=== PATIENT | female | born 1980 | race Caucasian/White ===

== ENCOUNTER 2018-02-24 15:52 | Emergency (ER) | payer SELFPAY ==
--- NOTE | 2018-02-24 17:20 | ER ---
Nurse's Notes [facility] Emergency Department Name: Isabel Saucedo Age: 37 yrs Sex: Female : 1980 Arrival Date: 02/24/2018 Time: 15:53 Bed Waiting Private MD: Luis Peterson R Diagnosis: Assessment: 02/24 17:19 Reassessment: pt told registration staff that she was going to follow up with her PCP iw tomorrow. ED Course: 15:53 Patient arrived in ED. sb2 15:54 Luis Peterson MD is Private Physician. sb2 16:30 Patient's name was called from ER lobby. No response. aj1 16:45 Patient's name was called from ER lobby. No response. aj1 17:19 Patient's name was called from ER lobby. No response. aj1 Administered Medications: No medications were administered Outcome: 17:19 Patient left the ED. aj1 Signatures: Bernadette Patten RN RN aj1 Zeinab Benedict RN RN iw Billeau, Sheri sb2
== END 2018-02-24 17:19 | disposition left against medical advice (07) ==
LOC: ER 15:52
DX: Z53.21 Procedure and treatment not carried out due to patient leaving prior to being seen by health care provider (principal)

== ENCOUNTER 2018-08-28 08:43 | Emergency (ER) | payer SELFPAY ==
--- NOTE | 2018-08-28 09:55 | ER ---
Nurse's Notes [facility] Name: Isabel Saucedo Age: 38 yrs Sex: Female : 1980 Arrival Date: 08/28/2018 Time: 08:46 Bed 18 Private MD: Diagnosis: Other local infections of skin and subcutaneous tissue Presentation: 08/28 08:57 Presenting complaint: Patient states: "I think I have a staph infection." Reports sv "spots" that have been on both breasts for 2 months and 2 more spots on her right upper inner thigh that came up 2 days ago. Transition of care: patient was not received from another setting of care. Onset of symptoms is unknown. Care prior to arrival: None. 08:57 Method Of Arrival: Ambulatory sv 08:57 Acuity: SACHIN 3 sv 09:15 Risk Assessment: Do you want to hurt yourself or someone else? Patient reports no em desire to harm self or others. Initial Sepsis Screen: Does the patient meet any 2 criteria? No. Patient's initial sepsis screen is negative. Does the patient have a suspected source of infection? No. Patient's initial sepsis screen is negative. Historical: - Allergies: 09:03 PENICILLINS; sv - PMHx: 09:03 Aortic Stenosis; MRSA INFECTIONS; sv - PSHx: 09:03 Hysterectomy; I\\T\\D; sv - Immunization history:: Adult Immunizations up to date. - Social history:: Smoking status: Patient uses tobacco products, smokes one pack cigarettes per day. Patient/guardian denies using alcohol. - Ebola Screening: : No symptoms or risks identified at this time. Screenin:57 Abuse screen: Denies threats or abuse. Denies injuries from another. Nutritional sv screening: No deficits noted. Tuberculosis screening: No symptoms or risk factors identified. Fall Risk None identified. Assessment: 08:57 General: Appears in no apparent distress. comfortable, well developed, Behavior is sv calm, cooperative, appropriate for age. Pain:. Neuro: Level of Consciousness is awake, alert, obeys commands, Oriented to person, place, time, situation, Moves all extremities. Full function Gait is steady. Respiratory: Respiratory effort is even, unlabored, Respiratory pattern is regular, symmetrical. Derm: Skin is pink, warm \\T\\ dry. red raised areas about the 2 mm in diameter on danyel breasts and right upper inner thigh. Musculoskeletal: Range of motion: intact in all extremities. 10:00 Reassessment: Patient appears in no apparent distress at this time. Patient and/or em family updated on plan of care and expected duration. Pain level reassessed. Patient is alert, oriented x 3, equal unlabored respirations, skin warm/dry/pink. Vital Signs: 08:56 BP 135 / 80; Pulse 85; Resp 17; Temp 98.9; Pulse Ox 100% on R/A; jb1 09:03 Weight 61.23 kg; Height 5 ft. 1 in. (154.94 cm); Pain 4/10; sv 10:00 BP 133 / 67; Pulse 79; Resp 18; Pulse Ox 99% on R/A; em 09:03 Body Mass Index 25.51 (61.23 kg, 154.94 cm) sv ED Course: 08:46 Patient arrived in ED. rg4 08:54 Savage Calhoun PA is PHCP. cp 08:54 Savage Moreno MD is Attending Physician. cp 08:57 Patient has correct armband on for positive identification. Bed in low position. Door sv closed. Head of bed elevated. 08:58 Kurt Wong LVN is Primary Nurse. em 09:02 Triage completed. sv 09:03 Arm band placed on Patient placed in an exam room, on a stretcher. sv 09:30 KERRY Claudio chaperoned provider. em 10:17 Patient did not have IV access during this emergency room visit. em Administered Medications: No medications were administered Outcome: 09:54 Discharge ordered by MD. cp 10:17 Discharged to home ambulatory. em 10:17 Condition: good 10:17 Discharge instructions given to patient, Instructed on discharge instructions, follow up and referral plans. medication usage, Demonstrated understanding of instructions, follow-up care, medications, Prescriptions given X 1. 10:37 Patient left the ED. aa5 Signatures: Teodoro Weaver jb1 Lorna Condon RN RN Kurt Wong LVN LVN em Shanon Johnson RN RN aa5 Savage Calhoun PA PA cp Garcia, Rubi rg4
--- NOTE | 2018-08-28 09:55 | EDPHYS ---
Physician Documentation [facility] Name: Isabel Saucedo Age: 38 yrs Sex: Female : 1980 Arrival Date: 08/28/2018 Time: 08:46 Bed 18 Private MD: ED Physician Savage Moreno HPI: 08/28 09:35 This 38 yrs old Female presents to ER via Ambulatory with complaints of cp Abscess. 09:35 skin infection. cp 09:35 Description: draining, erythematous. cp 09:35 Onset: The symptoms/episode began/occurred 2 day(s) ago. cp 09:35 Associated signs and symptoms: Pertinent negatives: fever. Severity of symptoms: in the cp emergency department the symptoms are unchanged. Historical: - Allergies: 09:03 PENICILLINS; sv - PMHx: 09:03 Aortic Stenosis; MRSA INFECTIONS; sv - PSHx: 09:03 Hysterectomy; I\T\D; sv - Immunization history:: Adult Immunizations up to date. - Social history:: Smoking status: Patient uses tobacco products, smokes one pack cigarettes per day. Patient/guardian denies using alcohol. - Ebola Screening: : No symptoms or risks identified at this time. ROS: 09:40 Constitutional: Negative for body aches, chills, fever, poor PO intake. cp 09:40 Eyes: Negative for injury, pain, redness, and discharge. cp 09:40 ENT: Negative for drainage from ear(s), ear pain, sore throat, difficulty swallowing, difficulty handling secretions. 09:40 Cardiovascular: Positive for breast tenderness and swelling. 09:40 Respiratory: Negative for cough, shortness of breath, wheezing. 09:40 Abdomen/GI: Negative for abdominal pain, nausea, vomiting, and diarrhea. 09:40 Skin: Positive for of the left upper inner leg and right upper inner leg, skin infection. 09:40 All other systems are negative. Exam: 09:45 Constitutional: The patient appears in no acute distress, alert, awake, non-toxic, well cp developed, well nourished, anxious. 09:45 Head/Face: Normocephalic, atraumatic. cp 09:45 Eyes: Periorbital structures: appear normal, Conjunctiva: normal, no exudate, no cp injection, Lids and lashes: appear normal, bilaterally. 09:45 ENT: External ear(s): are unremarkable, Nose: is normal, Mouth: Lips: moist, Oral mucosa: moist, Posterior pharynx: Airway: no evidence of obstruction, patent. 09:45 Cardiovascular: Rate: normal. 09:45 Respiratory: the patient does not display signs of respiratory distress, Respirations: normal, no use of accessory muscles, no retractions, no splinting, no tachypnea. 09:45 Abdomen/GI: Exam negative for discomfort, distension, guarding, Inspection: abdomen appears normal. 09:45 Skin: noted several tender erythematous papules with mild erythema left upper inner leg and right upper inner leg. 09:45 Chest/axilla: Breasts: abscess, not appreciated, cellulitis, is not appreciated, cp swelling, is not appreciated, tenderness, that is mild in both breasts. Vital Signs: 08:56 BP 135 / 80; Pulse 85; Resp 17; Temp 98.9; Pulse Ox 100% on R/A; jb1 09:03 Weight 61.23 kg; Height 5 ft. 1 in. (154.94 cm); Pain 4/10; sv 10:00 BP 133 / 67; Pulse 79; Resp 18; Pulse Ox 99% on R/A; em 09:03 Body Mass Index 25.51 (61.23 kg, 154.94 cm) sv MDM: 08:54 Patient medically screened. cp 09:35 Differential diagnosis: abscess, allergic reaction, cellulitis. cp 09:53 Data reviewed: vital signs, nurses notes, lab test result(s), and as a result, I will cp discharge patient. 09:53 Counseling: I had a detailed discussion with the patient and/or guardian regarding: the cp historical points, exam findings, and any diagnostic results supporting the discharge/admit diagnosis, lab results, to return to the emergency department if symptoms worsen or persist or if there are any questions or concerns that arise at home. 08/28 09:34 Order name: Urine Dipstick--Ancillary (enter results) [facility] 08/28 09:34 Order name: Urine --Ancillary (enter results) aa 08/28 09:26 Order name: Urine Dipstick-Ancillary (obtain specimen); Complete Time: 09:33 cp 08/28 09:26 Order name: Urine Test (obtain specimen); Complete Time: 09:32 cp Administered Medications: No medications were administered Disposition: 08/28/18 09:54 Discharged to Home. Impression: Other local infections of skin and subcutaneous tissue. - Condition is Stable. - Discharge Instructions: Staphylococcal Infection. - Prescriptions for Doxycycline Hyclate 100 mg Oral Tablet - take 1 tablet by ORAL route every 12 hours; 20 tablet. - Medication Reconciliation Form, Thank You Letter, Antibiotic Education, Prescription Opioid Use form. - Follow up: Private Physician; When: 1 week; Reason: no improvement. - Problem is new. - Symptoms are unchanged. Addendum: 08/31/2018 05:26 Co-signature as Attending Physician, Savage Moreno MD I agree with the assessment and c mckeon plan of care. Signatures: Dispatcher [employer] Lorna Flower, RN RN sv Savage Moreno MD MD cha Calderon, Audri RN RN aa5 Savage Calhoun PA PA cp Corrections: (The following items were deleted from the chart) 08/28 10:37 09:54 08/28/2018 09:54 Discharged to Home. Impression: Other local infections of skin aa5 and subcutaneous tissue. Condition is Stable. Forms are Medication Reconciliation Form, Thank You Letter, Antibiotic Education, Prescription Opioid Use. Follow up: Private Physician; When: 1 week; Reason: no improvement. Problem is new. Symptoms are unchanged. cp
[2018-08-28 10:05] LABS: Urine Blood NEGATIVE (NEG); Urine Glucose NEGATIVE (NEG); Urine Protein NEGATIVE (NEG); Urine pH 6.5 (5.0-7.0)
[2018-08-28 10:50] VITALS: TEMP 98.9
[2018-08-28 10:52] VITALS: BP 133/67; O2SAT 99
== END 2018-08-28 10:37 | disposition home or self-care (01) ==
LOC: ER 08:43
DX: L08.89 Other specified local infections of the skin and subcutaneous tissue (principal); Z88.0 Allergy status to penicillin; F17.210 Nicotine dependence, cigarettes, uncomplicated
CPT/HCPCS: 81003; 81025; 99282

== ENCOUNTER 2018-08-29 07:14 | Emergency (ER) | payer SELFPAY ==
--- NOTE | 2018-08-29 07:54 | EDPHYS ---
Physician Documentation [facility] Name: Isabel Saucedo Age: 38 yrs Sex: Female : 1980 Arrival Date: 08/29/2018 Time: 07:21 Bed 12 Private MD: ED Physician Adal Edmondson HPI: 08/29 07:42 This 38 yrs old Female presents to ER via Ambulatory with complaints of rash cp on leg. 07:42 Onset: The symptoms/episode began/occurred this morning. Associated signs and symptoms: cp Pertinent positives: itching. Patient reports hives on legs since this morning. Took one dose of doxycycline for skin infection yesterday. 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 - Ebola Screening: : Patient negative for fever greater than or equal to 101.5 degrees Fahrenheit, and additional compatible Ebola Virus Disease symptoms Patient denies exposure to infectious person Patient denies travel to an Ebola-affected area in the 21 days before illness onset No symptoms or risks identified at this time. - Social history:: Smoking status: unknown. ROS: 07:51 Constitutional: Negative for body aches, chills, fever, poor PO intake. cp 07:51 Cardiovascular: Negative for chest pain, palpitations. 07:51 Respiratory: Negative for cough, shortness of breath, wheezing. 07:51 Abdomen/GI: Negative for abdominal pain, nausea, vomiting, and diarrhea. 07:51 Skin: Positive for rash, of the right leg and left leg. 07:51 Neuro: Negative for headache, weakness. 07:51 All other systems are negative. Exam: 07:52 Head/Face: Normocephalic, atraumatic. cp 07:52 Constitutional: The patient appears in no acute distress, alert, awake, non-toxic, well developed, well nourished. 07:52 Eyes: Periorbital structures: appear normal, Conjunctiva: normal, no exudate, no injection, Lids and lashes: appear normal, bilaterally. 07:52 ENT: External ear(s): are unremarkable, Nose: is normal, Mouth: Lips: moist, Oral mucosa: moist, Posterior pharynx: Airway: no evidence of obstruction, patent. 07:52 Chest/axilla: Inspection: normal. 07:52 Respiratory: the patient does not display signs of respiratory distress, Respirations: normal, no use of accessory muscles, no retractions, no splinting, no tachypnea. 07:52 Skin: rash can be described as excoriated, urticarial, on the right leg and left leg. Vital Signs: 07:55 BP 125 / 73; Pulse 84; Resp 16; Temp 98.2; Pulse Ox 100% on R/A; Pain 0/10; iw MDM: 07:35 Patient medically screened. cp 07:50 Differential diagnosis: cellulitis, hives, urticaria. cp 07:51 Data reviewed: vital signs, nurses notes, and as a result, I will discharge patient. cp 07:51 Counseling: I had a detailed discussion with the patient and/or guardian regarding: the cp historical points, exam findings, and any diagnostic results supporting the discharge/admit diagnosis, to return to the emergency department if symptoms worsen or persist or if there are any questions or concerns that arise at home. Administered Medications: No medications were administered Disposition: 08:00 Chart complete. cp 12:17 Co-signature as Attending Physician, Adal Edmondson MD. Disposition: 08/29/18 07:53 Discharged to Home. Impression: Urticaria. - Condition is Stable. - Discharge Instructions: Hives. - Prescriptions for Pepcid 20 mg Oral Tablet - take 1 tablet by ORAL route every 12 hours for 5 days; 10 tablet. Prednisone 20 mg Oral Tablet - take 2 tablet by ORAL route once daily for 5 days; 10 tablet. Clindamycin HCl 150 mg Oral Capsule - take 1 capsule by ORAL route every 6 hours for 10 days; 40 capsule. - Medication Reconciliation Form, Thank You Letter, Antibiotic Education, Prescription Opioid Use form. - Follow up: Private Physician; When: 2 - 3 days; Reason: Recheck today's complaints. - Problem is new. - Symptoms are unchanged. - Notes: stop doxycycline Signatures: Zeinab Benedict RN RN iw Page, Corey, PA PA cp Starr, Gregory, MD MD Corrections: (The following items were deleted from the chart) 07:59 07:53 08/29/2018 07:53 Discharged to Home. Impression: Urticaria. Condition is Stable. iw Forms are Medication Reconciliation Form, Thank You Letter, Antibiotic Education, Prescription Opioid Use. Follow up: Private Physician; When: 2 - 3 days; Reason: Recheck today's complaints. Problem is new. Symptoms are unchanged. cp 08/30 06:18 08/29 07:42 This 38 yrs old Female presents to ER via Ambulatory with cp complaints of Infection On leg. cp
--- NOTE | 2018-08-29 07:54 | ER ---
Nurse's Notes [facility] Name: Isabel Saucedo Age: 38 yrs Sex: Female : 1980 Arrival Date: 08/29/2018 Time: 07:21 Bed 12 Private MD: Diagnosis: Urticaria Presentation: 08/29 07:35 Presenting complaint: Patient states: was seen here yesterday, started on abx for sores iw on her inner thighs, started having itching and hives last night. Transition of care: patient was received from another setting of care (rehabilitation facility). Onset of symptoms was August 29, 2018. Risk Assessment: Do you want to hurt yourself or someone else? Patient reports no desire to harm self or others. Initial Sepsis Screen: Does the patient meet any 2 criteria? No. Patient's initial sepsis screen is negative. Does the patient have a suspected source of infection? No. Patient's initial sepsis screen is negative. Care prior to arrival: None. 07:35 Method Of Arrival: Ambulatory iw 07:35 Acuity: SACHIN 5 iw Triage Assessment: 07:35 General: Appears in no apparent distress. Behavior is calm, cooperative. 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 - Ebola Screening: : Patient negative for fever greater than or equal to 101.5 degrees Fahrenheit, and additional compatible Ebola Virus Disease symptoms Patient denies exposure to infectious person Patient denies travel to an Ebola-affected area in the 21 days before illness onset No symptoms or risks identified at this time. - Social history:: Smoking status: unknown. Screenin:55 Abuse screen: Denies threats or abuse. Denies injuries from another. Nutritional iw screening: No deficits noted. Tuberculosis screening: No symptoms or risk factors identified. Fall Risk None identified. Assessment: 07:45 General: Appears in no apparent distress. comfortable, Behavior is calm, cooperative. iw Pain: Complains of pain in left leg and right leg. Neuro: Level of Consciousness is awake, alert, obeys commands, Oriented to person, place, time, situation, Moves all extremities. Full function. Cardiovascular: Patient's skin is warm and dry. Respiratory: Airway is patent Respiratory effort is even, unlabored, Respiratory pattern is regular. GI: No signs and/or symptoms were reported involving the gastrointestinal system. Derm: Parent/caregiver reports the patient having itching, hives to danyel inner thighs, has resolved at this point, states she was started on doxycycline yesterday, has taken clindamycin in the past and typically works well for her. Musculoskeletal: Range of motion: intact in all extremities. Vital Signs: 07:55 BP 125 / 73; Pulse 84; Resp 16; Temp 98.2; Pulse Ox 100% on R/A; Pain 0/10; iw ED Course: 07:21 Patient arrived in ED. mr 07:34 Zeinab Benedict, RN is Primary Nurse. iw 07:35 Savage Calhoun PA is PHCP. cp 07:35 Adal Edmondson MD is Attending Physician. cp 07:35 Patient has correct armband on for positive identification. iw 07:36 Triage completed. iw 07:37 Arm band placed on. iw 07:58 No provider procedures requiring assistance completed. Patient did not have IV access iw during this emergency room visit. Administered Medications: No medications were administered Outcome: 07:53 Discharge ordered by . cp 07:58 Discharged to home ambulatory. iw 07:58 Condition: good 07:58 Discharge instructions given to patient, Instructed on discharge instructions, follow up and referral plans. medication usage, Demonstrated understanding of instructions, follow-up care, medications, Prescriptions given X 3. 07:59 Patient left the ED. iw Signatures: Mariajose Schwab mr Zeinab Benedict, RN RN iw Savage Calhoun PA PA cp
[2018-08-29 08:12] VITALS: BP 125/73; TEMP 98.2; O2SAT 100
== END 2018-08-29 07:59 | disposition home or self-care (01) ==
LOC: ER 07:14
DX: L50.9 Urticaria, unspecified (principal); Z88.0 Allergy status to penicillin; Z79.82 Long term (current) use of aspirin
CPT/HCPCS: 99282

== ENCOUNTER 2018-09-13 14:12 | Emergency (ER) | payer SELFPAY ==
--- NOTE | 2018-09-13 15:20 | EDPHYS ---
Physician Documentation [facility] Name: Isabel Saucedo Age: 38 yrs Sex: Female : 1980 Arrival Date: 09/13/2018 Time: 14:14 Bed 17 Private MD: ED Physician Adal Edmondson HPI: 09/13 15:14 This 38 yrs old Female presents to ER via Ambulatory with complaints of Skin gs Problem. 15:14 The patient's rash thought to be caused by an unknown cause. The rash is located on the gs lateral aspect of right calf. The rash can be described as crusted. Onset: The symptoms/episode began/occurred 5 day(s) ago. Associated signs and symptoms: Pertinent positives: itching, Pertinent negatives: fever. Severity of symptoms: At their worst the symptoms were moderate in the emergency department the symptoms are unchanged. The patient has experienced similar episodes in the past, a few times. finished course of clinda for a staph infection. Historical: - Allergies: 14:16 penicillin resistant; la1 - PMHx: 14:16 Aortic Stenosis; MRSA INFECTIONS; la1 - Immunization history:: Adult Immunizations up to date. - Social history:: Smoking status: Patient uses tobacco products, smokes one-half pack cigarettes per day. - Ebola Screening: : No symptoms or risks identified at this time. ROS: 15:14 All other systems are negative. gs Exam: 15:14 Head/Face: Normocephalic, atraumatic. Eyes: Pupils equal round and reactive to light, gs extra-ocular motions intact. Lids and lashes normal. Conjunctiva and sclera are non-icteric and not injected. Cornea within normal limits. Periorbital areas with no swelling, redness, or edema. ENT: Nares patent. No nasal discharge, no septal abnormalities noted. Tympanic membranes are normal and external auditory canals are clear. Oropharynx with no redness, swelling, or masses, exudates, or evidence of obstruction, uvula midline. Mucous membranes moist. Neck: Trachea midline, no thyromegaly or masses palpated, and no cervical lymphadenopathy. Supple, full range of motion without nuchal rigidity, or vertebral point tenderness. No Meningismus. Chest/axilla: Normal chest wall appearance and motion. Nontender with no deformity. No lesions are appreciated. Cardiovascular: Regular rate and rhythm with a normal S1 and S2. No gallops, murmurs, or rubs. Normal PMI, no JVD. No pulse deficits. Respiratory: Lungs have equal breath sounds bilaterally, clear to auscultation and percussion. No rales, rhonchi or wheezes noted. No increased work of breathing, no retractions or nasal flaring. Abdomen/GI: Soft, non-tender, with normal bowel sounds. No distension or tympany. No guarding or rebound. No evidence of tenderness throughout. Back: No spinal tenderness. No costovertebral tenderness. Full range of motion. MS/ Extremity: Pulses equal, no cyanosis. Neurovascular intact. Full, normal range of motion. Neuro: Awake and alert, GCS 15, oriented to person, place, time, and situation. Cranial nerves II-XII grossly intact. Motor strength 5/5 in all extremities. Sensory grossly intact. Cerebellar exam normal. Normal gait. 15:14 Constitutional: The patient appears alert, awake. 15:14 Skin: small scab r lateral leg with mild surrounding erythema. Vital Signs: 14:18 Pulse 84; Resp 18; Temp 98.4; Pulse Ox 100% on R/A; Weight 61.23 kg; Height 5 ft. 2 in. la1 (157.48 cm); 14:19 BP 133 / 78; la1 14:18 Body Mass Index 24.69 (61.23 kg, 157.48 cm) la1 MDM: 15:00 Patient medically screened. gs 15:14 Data reviewed: vital signs, nurses notes. Response to treatment: There is no gs appreciated change of the patient's symptoms at this time. ED course: will try to decolonize mrsa. Administered Medications: No medications were administered Disposition: 09/13/18 15:20 Discharged to Home. Impression: Methicillin resistant Staphylococcus aureus infection, unspecified site. - Condition is Stable. - Discharge Instructions: Community-Associated MRSA. - Prescriptions for Bactroban 2 % Topical Ointment - apply 1 application by INTRANASAL route every 12 hours for 5 days; 15 gram. - Medication Reconciliation Form, Thank You Letter, Antibiotic Education, Prescription Opioid Use form. - Follow up: Private Physician; When: 2 - 3 days; Reason: Re-evaluation by your physician. Signatures: Kurt Wong, TESHA MUSAN Jens Boyd RN Adal Kurtz MD MD gs Corrections: (The following items were deleted from the chart) 15:46 15:20 09/13/2018 15:20 Discharged to Home. Impression: Methicillin resistant em Staphylococcus aureus infection, unspecified site. Condition is Stable. Forms are Medication Reconciliation Form, Thank You Letter, Antibiotic Education, Prescription Opioid Use. Follow up: Private Physician; When: 2 - 3 days; Reason: Re-evaluation by your physician. gs
--- NOTE | 2018-09-13 15:20 | ER ---
Nurse's Notes [facility] Name: Isabel Saucedo Age: 38 yrs Sex: Female : 1980 Arrival Date: 09/13/2018 Time: 14:14 Bed 17 Private MD: Diagnosis: Methicillin resistant Staphylococcus aureus infection, unspecified site Presentation: 09/13 14:16 Presenting complaint: Patient states: I have some sports on my arms and legs and I am la1 worried because I always get staph infections. I am also feeling like crap and I don't know what it is from. Transition of care: patient was not received from another setting of care. Onset of symptoms was September 13, 2018. Risk Assessment: Do you want to hurt yourself or someone else? Patient reports no desire to harm self or others. Initial Sepsis Screen: Does the patient meet any 2 criteria? No. Patient's initial sepsis screen is negative. Does the patient have a suspected source of infection? No. Patient's initial sepsis screen is negative. Care prior to arrival: None. 14:16 Method Of Arrival: Ambulatory la1 14:16 Acuity: SACHIN 3 la1 Historical: - Allergies: 14:16 penicillin resistant; la1 - PMHx: 14:16 Aortic Stenosis; MRSA INFECTIONS; la1 - Immunization history:: Adult Immunizations up to date. - Social history:: Smoking status: Patient uses tobacco products, smokes one-half pack cigarettes per day. - Ebola Screening: : No symptoms or risks identified at this time. Screenin:00 Abuse screen: Denies threats or abuse. Nutritional screening: No deficits noted. em Tuberculosis screening: No symptoms or risk factors identified. Fall Risk None identified. Assessment: 15:00 General: Appears in no apparent distress. comfortable, Behavior is calm, cooperative, em Denies fever. Pain: Denies pain. Neuro: Level of Consciousness is awake, alert, obeys commands, Oriented to person, place, time, situation. Cardiovascular: Capillary refill < 3 seconds Patient's skin is warm and dry. Respiratory: Airway is patent Respiratory effort is even, unlabored, Respiratory pattern is regular, symmetrical. GI: Abdomen is flat. : No signs and/or symptoms were reported regarding the genitourinary system. Derm: Skin is intact, is healthy with good turgor, Skin is pink, warm \T\ dry. redness noted to danyel. hands, described as itchy Reports reports having MRSA every time she is at [facility] [facility]. Musculoskeletal: Capillary refill < 3 seconds, Range of motion: intact in all extremities. 15:15 Reassessment: Patient appears in no apparent distress at this time. I agree with above iw assessment by Kurt Wong LVN. Vital Signs: 14:18 Pulse 84; Resp 18; Temp 98.4; Pulse Ox 100% on R/A; Weight 61.23 kg; Height 5 ft. 2 in. la1 (157.48 cm); 14:19 BP 133 / 78; la1 14:18 Body Mass Index 24.69 (61.23 kg, 157.48 cm) la1 ED Course: 14:14 Patient arrived in ED. as 14:17 Triage completed. la1 14:17 Arm band placed on left wrist. la1 14:29 Adal Edmondson MD is Attending Physician. 14:36 Kurt Wong LVN is Primary Nurse. em 15:00 Patient has correct armband on for positive identification. Bed in low position. Call em light in reach. 15:46 No provider procedures requiring assistance completed. Patient did not have IV access em during this emergency room visit. Administered Medications: No medications were administered Outcome: 15:20 Discharge ordered by . gs 15:46 Discharged to home ambulatory. em 15:46 Condition: good 15:46 Discharge instructions given to patient, Instructed on discharge instructions, follow up and referral plans. medication usage, Demonstrated understanding of instructions, follow-up care, medications, Prescriptions given X 1. 15:46 Patient left the ED. em Signatures: Kurt Wong LVN LVN em Lawanda Seo as Zeinab Benedict, RN KERRY Jens Doty RN RN [facility] Adal Edmondson MD MD
[2018-09-13 15:51] VITALS: BP 133/78; TEMP 98.4; O2SAT 100
== END 2018-09-13 15:46 | disposition home or self-care (01) ==
LOC: ER 14:12
DX: A49.02 Methicillin resistant Staphylococcus aureus infection, unspecified site (principal); F17.210 Nicotine dependence, cigarettes, uncomplicated; Z88.0 Allergy status to penicillin
CPT/HCPCS: 99282

== ENCOUNTER 2018-11-11 16:14 | Emergency (ER) | payer SELFPAY ==
--- OUTSIDE RECORDS SUMMARY | 2018-11-11 16:24 | XMS REPORT ---
:1980 [facility] [address] [place] [address] Care Team Providers Name Role Phone Unavailable Unavailable Unavailable Problems This patient has no known problems. Allergies, Adverse Reactions, Alerts This patient has no known allergies or adverse reactions. Medications This patient has no known medications.
[2018-11-11] MEDS ORDERED: predniSONE 20 MG TAB ONE (17:08)
[2018-11-11] MEDS ORDERED: FAMOTIDINE 20 MG TAB ONE (17:08)
--- NOTE | 2018-11-11 17:16 | ER ---
Nurse's Notes [facility] Name: Isabel Saucedo Age: 38 yrs Sex: Female : 1980 Arrival Date: 11/11/2018 Time: 16:16 Bed 13 Private MD: Diagnosis: Acute pharyngitis Presentation: 11/11 16:30 Presenting complaint: Patient states: sore throat and cough x 2 days ago. Pt states "my aa5 body hurts, especially my chest and my neck". 16:30 Transition of care: patient was not received from another setting of care. Onset of aa5 symptoms was October 2018. Risk Assessment: Do you want to hurt yourself or someone else? Patient reports no desire to harm self or others. Initial Sepsis Screen: Does the patient meet any 2 criteria? No. Patient's initial sepsis screen is negative. Does the patient have a suspected source of infection? No. Patient's initial sepsis screen is negative. Care prior to arrival: None. 16:30 Method Of Arrival: Ambulatory aa5 16:30 Acuity: SACHIN 4 aa5 Triage Assessment: 16:30 General: Appears in no apparent distress. comfortable, Behavior is calm, cooperative, bp appropriate for age. Pain: Complains of pain in GENERALIZED. EENT: Reports pain when swallowing. Neuro: Level of Consciousness is awake, alert, obeys commands, Oriented to person, place, time, situation, Appropriate for age. Cardiovascular: No deficits noted. Respiratory: Airway is patent Respiratory effort is even, unlabored, Respiratory pattern is regular, symmetrical. GI: No signs and/or symptoms were reported involving the gastrointestinal system. : No signs and/or symptoms were reported regarding the genitourinary system. Derm: No deficits noted. Musculoskeletal: Circulation, motion, and sensation intact. Range of motion: intact in all extremities. 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 - Social history:: Smoking status: Patient uses tobacco products, smokes one-half pack cigarettes per day. - Ebola Screening: : No symptoms or risks identified at this time. Screenin:07 Abuse screen: Denies threats or abuse. Denies injuries from another. Nutritional bp screening: No deficits noted. Tuberculosis screening: No symptoms or risk factors identified. Fall Risk None identified. Assessment: 16:30 General: SEE TRIAGE NOTE. Respiratory: Airway is patent Breath sounds are clear bp bilaterally. 16:30 Respiratory: Airway is patent Respiratory effort is even, unlabored, Respiratory bp pattern is regular, symmetrical, Breath sounds are clear bilaterally. 16:30 EENT: Throat is reddened. bp 17:57 Reassessment: FINAL LAB RESULTS RECEIVED FROM LAB. PT D/C HOME AMBULATORY WITH FAMILY, bp DX WITH ACUTE PHARYNGITIS. Vital Signs: 16:30 BP 110 / 65; Pulse 83; Resp 18 S; Temp 98.2(O); Pulse Ox 99% on R/A; Weight 61.23 kg aa5 (R); Height 5 ft. 2 in. (157.48 cm) (R); Pain 8/10; 17:57 BP 117 / 69; Pulse 77; Resp 14; Temp 98.2; Pulse Ox 99% ; bp 16:30 Body Mass Index 24.69 (61.23 kg, 157.48 cm) aa5 ED Course: 16:16 Patient arrived in ED. mr 16:25 Elba Antoine [facility]C [facility] snw 16:25 Carmenza Dawkins MD is Attending Physician. snw 16:28 Arm band placed on Patient placed in an exam room, on a stretcher. aa5 16:38 Triage completed. aa5 16:46 Oh Giraldo, RN is Primary Nurse. bp 17:07 Patient has correct armband on for positive identification. Bed in low position. Call bp light in reach. Side rails up X2. Adult w/ patient. 17:57 No provider procedures requiring assistance completed. Patient did not have IV access bp during this emergency room visit. Administered Medications: 16:50 Drug: predniSONE 40 mg Route: PO; bp 17:27 Follow up: Response: No adverse reaction bp 16:50 Drug: Pepcid 20 mg Route: PO; bp 17:27 Follow up: Response: No adverse reaction bp Outcome: 17:15 Discharge ordered by . snw 17:58 Discharged to home ambulatory, with family. bp 17:58 Condition: stable 17:58 Discharge instructions given to patient, Instructed on discharge instructions, follow up and referral plans. medication usage, Demonstrated understanding of instructions, follow-up care, medications, Prescriptions given X 3. 17:59 Patient left the ED. bp Signatures: Elba Antoine, BALANCE BRIDGE ASSEMBLER-C BALANCE BRIDGE ASSEMBLER-Csnw Mariajose Schwab mr Johnson, Shanon, RN RN aa5 Oh Giraldo RN RN bp
--- NOTE | 2018-11-11 17:17 | EDPHYS ---
Physician Documentation [facility] Name: Isabel Saucedo Age: 38 yrs Sex: Female : 1980 Arrival Date: 11/11/2018 Time: 16:16 Bed 13 Private MD: ED Physician Carmenza Dawkins HPI: 11/11 16:45 This 38 yrs old Female presents to ER via Ambulatory with complaints of Sore snw Throat. 16:45 The patient presents with sore throat. The patient describes throat pain as raw, snw scratchy. Onset: The symptoms/episode began/occurred suddenly, 4 day(s) ago, and became persistent. Modifying factors: The symptoms are alleviated by nothing, the symptoms are aggravated by swallowing, Patient's oral intake status: good. Associated signs and symptoms: Pertinent positives: cough. It is unknown whether or not the patient has had similar symptoms in the past. It is unknown whether or not the patient has recently seen a physician. 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 - Social history:: Smoking status: Patient uses tobacco products, smokes one-half pack cigarettes per day. - Ebola Screening: : No symptoms or risks identified at this time. ROS: 16:43 Constitutional: Negative for fever, chills, and weight loss, Eyes: Negative for injury, snw pain, redness, and discharge, ENT: Negative for injury and discharge, + pain x 4 days Neck: Negative for injury, pain, and swelling, Cardiovascular: Negative for chest pain, palpitations, and edema, awoke with right chest wall tenderness s/p cough Respiratory: Negative for shortness of breath, cough, wheezing, and pleuritic chest pain, Abdomen/GI: Negative for abdominal pain, nausea, vomiting, diarrhea, and constipation, Back: Negative for injury and pain, : Negative for injury, bleeding, discharge, and swelling, MS/Extremity: Negative for injury and deformity, Skin: Negative for injury, rash, and discoloration, Neuro: Negative for headache, weakness, numbness, tingling, and seizure. Exam: 16:41 Constitutional: This is a well developed, well nourished patient who is awake, alert, snw and in no acute distress. Head/Face: Normocephalic, atraumatic. Eyes: Pupils equal round and reactive to light, extra-ocular motions intact. Lids and lashes normal. Conjunctiva and sclera are non-icteric and not injected. Cornea within normal limits. Periorbital areas with no swelling, redness, or edema. Neck: Trachea midline, no thyromegaly or masses palpated, and no cervical lymphadenopathy. Supple, full range of motion without nuchal rigidity, or vertebral point tenderness. No Meningismus. Chest/axilla: Normal chest wall appearance and motion. Nontender with no deformity. No lesions are appreciated. Cardiovascular: Regular rate and rhythm with a normal S1 and S2. No gallops, murmurs, or rubs. Normal PMI, no JVD. No pulse deficits. Respiratory: Lungs have equal breath sounds bilaterally, clear to auscultation and percussion. No rales, rhonchi or wheezes noted. No increased work of breathing, no retractions or nasal flaring. Abdomen/GI: Soft, non-tender, with normal bowel sounds. No distension or tympany. No guarding or rebound. No evidence of tenderness throughout. Back: No spinal tenderness. No costovertebral tenderness. Full range of motion. Skin: Warm, dry with normal turgor. Normal color with no rashes, no lesions, and no evidence of cellulitis. MS/ Extremity: Pulses equal, no cyanosis. Neurovascular intact. Full, normal range of motion. Neuro: Awake and alert, GCS 15, oriented to person, place, time, and situation. Cranial nerves II-XII grossly intact. Motor strength 5/5 in all extremities. Sensory grossly intact. Cerebellar exam normal. Normal gait. Psych: Awake, alert, with orientation to person, place and time. Behavior, mood, and affect are within normal limits. 16:41 ENT: External ear(s): are unremarkable, Ear canal(s): are normal, TM's: erythema, that is mild, on the left, Examination of the other ear shows no obvious abnormality, Nose: is normal, Mouth: is normal, Posterior pharynx: erythema, that is mild, Voice: is normal. Vital Signs: 16:30 BP 110 / 65; Pulse 83; Resp 18 S; Temp 98.2(O); Pulse Ox 99% on R/A; Weight 61.23 kg aa5 (R); Height 5 ft. 2 in. (157.48 cm) (R); Pain 8/10; 17:57 BP 117 / 69; Pulse 77; Resp 14; Temp 98.2; Pulse Ox 99% ; bp 16:30 Body Mass Index 24.69 (61.23 kg, 157.48 cm) aa5 MDM: 16:31 Patient medically screened. snw 17:16 Data reviewed: vital signs, nurses notes. Data interpreted: Pulse oximetry: on room air snw is 99 %. Interpretation: normal. Counseling: I had a detailed discussion with the patient and/or guardian regarding: the historical points, exam findings, and any diagnostic results supporting the discharge/admit diagnosis, lab results, the need for outpatient follow up, to return to the emergency department if symptoms worsen or persist or if there are any questions or concerns that arise at home. Special discussion: Based on the history and exam findings, there is no indication for further emergent testing or inpatient evaluation. I discussed with the patient/guardian the need to see the primary care provider for further evaluation of the symptoms. 11/11 16:26 Order name: Strep; Complete Time: 17:55 snw 11/11 17:53 Order name: Throat Culture EDMS Administered Medications: 16:50 Drug: predniSONE 40 mg Route: PO; bp 17:27 Follow up: Response: No adverse reaction bp 16:50 Drug: Pepcid 20 mg Route: PO; bp 17:27 Follow up: Response: No adverse reaction bp Disposition: 18:39 Co-signature as Attending Physician, Carmenza Dawkins MD. ma2 Disposition: 11/11/18 17:15 Discharged to Home. Impression: Acute pharyngitis. - Condition is Stable. - Discharge Instructions: Pharyngitis, Rehydration, Adult. - Prescriptions for Prednisone 20 mg Oral Tablet - take 1 tablet by ORAL route once daily for 5 days; 5 tablet. Tessalon Perles 100 mg Oral Capsule - take 1 capsule by ORAL route every 8 hours As needed; 15 capsule. Pepcid 20 mg Oral Tablet - take 1 tablet by ORAL route once daily; 20 tablet. - Medication Reconciliation Form, Thank You Letter, Antibiotic Education, Prescription Opioid Use form. - Follow up: Emergency Department; When: As needed; Reason: Worsening of condition. Follow up: Private Physician; When: 2 - 3 days; Reason: Recheck today's complaints, Continuance of care, Re-evaluation by your physician. Signatures: Dispatcher [employer] EDNE ArashElba whiting, JENNIFER-C PLANNING ADVISOR-Csnw Shanon Johnson, RN RN aa5 Oh Giraldo RN RN bp Carmenza Dawkins MD MD ma2 Corrections: (The following items were deleted from the chart) 17:59 17:15 11/11/2018 17:15 Discharged to Home. Impression: Acute pharyngitis. Condition is bp Stable. Discharge Instructions: Pharyngitis, Rehydration, Adult. Prescriptions for Prednisone 20 mg Oral Tablet - take 1 tablet by ORAL route once daily for 5 days; 5 tablet, Tessalon Perles 100 mg Oral Capsule - take 1 capsule by ORAL route every 8 hours As needed; 15 capsule. and Forms are Medication Reconciliation Form, Thank You Letter, Antibiotic Education, Prescription Opioid Use. Follow up: Emergency Department; When: As needed; Reason: Worsening of condition. Follow up: Private Physician; When: 2 - 3 days; Reason: Recheck today's complaints, Continuance of care, Re-evaluation by your physician. snw
[2018-11-11 18:24] VITALS: TEMP 98.2; O2SAT 99
[2018-11-11 18:26] VITALS: BP 117/69
== END 2018-11-11 17:59 | disposition home or self-care (01) ==
LOC: ER 16:14
DX: J02.9 Acute pharyngitis, unspecified (principal); F17.210 Nicotine dependence, cigarettes, uncomplicated; Z88.0 Allergy status to penicillin
CPT/HCPCS: 87070; 87081; 99283; J7512

== ENCOUNTER 2019-04-07 08:40 | Emergency (ER) | payer SELFPAY ==
[2019-04-07] MEDS ORDERED: KETOROLAC 30 MG/ML INJ ONE (09:34)
--- NOTE | 2019-04-07 10:25 | EDPHYS ---
Physician Documentation [facility] Name: Isabel Saucedo Age: 39 yrs Sex: Female : 1980 Arrival Date: 04/07/2019 Time: 08:42 Bed 18 Private MD: ED Physician Hipolito Cobb HPI: 04/07 10:14 This 39 yrs old Female presents to ER via Ambulatory with complaints of Ear kdr Pain, Headache. 10:14 The patient presents with pain, tenderness. The complaints affect the right ear. Onset: kdr The symptoms/episode began/occurred this morning. Modifying factors: The symptoms are alleviated by nothing, the symptoms are aggravated by touching. Associated signs and symptoms: Pertinent positives: None. Severity of symptoms: At their worst the symptoms were mild in the emergency department the symptoms are unchanged. The patient has not experienced similar symptoms in the past. The patient has not recently seen a physician. 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 - Social history:: Smoking status: Patient uses tobacco products, smokes one pack cigarettes per day. - Ebola Screening: : Patient negative for fever greater than or equal to 101.5 degrees Fahrenheit, and additional compatible Ebola Virus Disease symptoms Patient denies exposure to infectious person Patient denies travel to an Ebola-affected area in the 21 days before illness onset No symptoms or risks identified at this time. ROS: 10:14 Constitutional: Negative for fever, chills, and weight loss, Eyes: Negative for injury, kdr pain, redness, and discharge, Neck: Negative for injury, pain, and swelling, Cardiovascular: Negative for chest pain, palpitations, and edema. 10:14 ENT: Positive for ear pain. Exam: 10:14 Constitutional: This is a well developed, well nourished patient who is awake, alert, kdr and in no acute distress. Head/Face: Normocephalic, atraumatic. Eyes: Pupils equal round and reactive to light, extra-ocular motions intact. Lids and lashes normal. Conjunctiva and sclera are non-icteric and not injected. Cornea within normal limits. Periorbital areas with no swelling, redness, or edema. Neck: Trachea midline, no thyromegaly or masses palpated, and no cervical lymphadenopathy. Supple, full range of motion without nuchal rigidity, or vertebral point tenderness. No Meningismus. Chest/axilla: Normal chest wall appearance and motion. Nontender with no deformity. No lesions are appreciated. 10:14 ENT: External ear(s): erythema, that is minimal, of the pinna of right ear. Vital Signs: 09:06 BP 124 / 90; Pulse 88; Resp 16; Temp 98.2(O); Pulse Ox 99% on R/A; Weight 61.23 kg; iw Height 5 ft. 2 in. (157.48 cm); Pain 9/10; 10:01 BP 116 / 78; Pulse 54; Resp 16; Pulse Ox 100% ; bp 09:06 Body Mass Index 24.69 (61.23 kg, 157.48 cm) iw MDM: 10:09 Patient medically screened. kdr 10:14 Data reviewed: vital signs, nurses notes. Counseling: I had a detailed discussion with kdr the patient and/or guardian regarding: the historical points, exam findings, and any diagnostic results supporting the discharge/admit diagnosis, the need for outpatient follow up. Administered Medications: 09:30 Drug: TORadol - Ketorolac 15 mg Route: IM; Site: right deltoid; bp 10:33 Follow up: Response: Pain is decreased bp Disposition: 04/07/19 10:09 Discharged to Home. Impression: Right Aricular Pain. - Condition is Stable. - Discharge Instructions: Earache, Adult, General Headache Without Cause, [id number]. - Prescriptions for Tramadol 50 mg Oral Tablet - take 1 tablet by ORAL route every 8 hours as needed; 12 tablet. - Medication Reconciliation Form, Thank You Letter form. - Follow up: Private Physician; When: 2 - 3 days; Reason: If symptoms return, Further diagnostic work-up, Recheck today's complaints, Continuance of care, Re-evaluation by your physician. - Problem is new. - Symptoms have improved. Signatures: Hipolito Cobb MD MD kdr Zeinab Benedict RN RN iw Enzo, Oh, RN RN bp Corrections: (The following items were deleted from the chart) 09:17 09:05 Allergies: Aspirin; iw iw 10:33 10:09 04/07/2019 10:09 Discharged to Home. Impression: Right Aricular Pain. Condition bp is Stable. Forms are Medication Reconciliation Form, Thank You Letter, Antibiotic Education, Prescription Opioid Use. Follow up: Private Physician; When: 2 - 3 days; Reason: If symptoms return, Further diagnostic work-up, Recheck today's complaints, Continuance of care, Re-evaluation by your physician. Problem is new. Symptoms have improved. kdr
--- NOTE | 2019-04-07 10:25 | ER ---
Nurse's Notes [facility] Name: Isabel Saucedo Age: 39 yrs Sex: Female : 1980 Arrival Date: 04/07/2019 Time: 08:42 Bed 18 Private MD: Diagnosis: Right Aricular Pain Presentation: 04/07 09:03 Presenting complaint: Patient states: right outer ear pain, right sided headache, iw described as sharp, "feels like my head's in a vice", started this morning and "I just don't feel good". Transition of care: patient was not received from another setting of care. Onset of symptoms was April 07, 2019. Risk Assessment: Do you want to hurt yourself or someone else? Patient reports no desire to harm self or others. Initial Sepsis Screen: Does the patient meet any 2 criteria? No. Patient's initial sepsis screen is negative. Does the patient have a suspected source of infection? No. Patient's initial sepsis screen is negative. Care prior to arrival: None. 09:03 Method Of Arrival: Ambulatory iw 09:03 Acuity: SACHIN 3 iw Triage Assessment: 09:05 General: Appears in no apparent distress. comfortable, Behavior is cooperative, bp appropriate for age, anxious. Pain: Complains of pain in right ear. EENT: No deficits noted. Neuro: No deficits noted. Cardiovascular: No deficits noted. Respiratory: No deficits noted. GI: No signs and/or symptoms were reported involving the gastrointestinal system. : No signs and/or symptoms were reported regarding the genitourinary system. Derm: No deficits noted. Musculoskeletal: No deficits noted. BEDSPREAD SEAMER: 09:06 LMP N/A - Hysterectomy iw Historical: - Allergies: :17 No Known Allergies; iw - Home Meds: 09:05 None [Active]; iw - PMHx: 09:05 Aortic Stenosis; MRSA INFECTIONS; iw - PSHx: 09:05 Hysterectomy; bladder sling; iw - Immunization history:: Adult Immunizations not up to date. - Social history:: Smoking status: Patient uses tobacco products, smokes one pack cigarettes per day. - Ebola Screening: : Patient negative for fever greater than or equal to 101.5 degrees Fahrenheit, and additional compatible Ebola Virus Disease symptoms Patient denies exposure to infectious person Patient denies travel to an Ebola-affected area in the 21 days before illness onset No symptoms or risks identified at this time. Screenin:05 Abuse screen: Denies threats or abuse. Denies injuries from another. Nutritional bp screening: No deficits noted. Tuberculosis screening: No symptoms or risk factors identified. Fall Risk None identified. Assessment: 09:05 General: SEE TRIAGE NOTE. bp 10:00 Reassessment: Patient and/or family updated on plan of care and expected duration. Pain bp level reassessed. Patient is alert, oriented x 3, equal unlabored respirations, skin warm/dry/pink. 10:32 Reassessment: PT D/C HOME AMBULATORY WITH FAMILY, DX WITH R EAR PAIN. bp Vital Signs: 09:06 BP 124 / 90; Pulse 88; Resp 16; Temp 98.2(O); Pulse Ox 99% on R/A; Weight 61.23 kg; iw Height 5 ft. 2 in. (157.48 cm); Pain 9/10; 10:01 BP 116 / 78; Pulse 54; Resp 16; Pulse Ox 100% ; bp 09:06 Body Mass Index 24.69 (61.23 kg, 157.48 cm) iw ED Course: 08:42 Patient arrived in ED. as 08:49 Oh Giraldo, RN is Primary Nurse. bp 08:50 Hipolito Cobb MD is Attending Physician. kdr 09:04 Triage completed. iw 09:05 Patient has correct armband on for positive identification. Bed in low position. Call bp light in reach. Side rails up X2. Adult w/ patient. 09:06 Arm band placed on. iw 10:32 No provider procedures requiring assistance completed. Patient did not have IV access bp during this emergency room visit. Administered Medications: 09:30 Drug: TORadol - Ketorolac 15 mg Route: IM; Site: right deltoid; bp 10:33 Follow up: Response: Pain is decreased bp Outcome: 10:09 Discharge ordered by . kdr 10:32 Discharged to home ambulatory, with family. bp 10:32 Condition: stable 10:32 Discharge instructions given to patient, Instructed on discharge instructions, follow up and referral plans. medication usage, Demonstrated understanding of instructions, follow-up care, medications, Prescriptions given X 1. 10:33 Patient left the ED. bp Signatures: Hipolito Cobb MD MD kdr Lawanda Seo Irene, KERRY RN Oh Hansen RN RN bp Corrections: (The following items were deleted from the chart) 09:17 09:05 Allergies: Aspirin; priscilla
[2019-04-07 10:57] VITALS: TEMP 98.2
[2019-04-07 10:58] VITALS: BP 116/78; O2SAT 100
== END 2019-04-07 10:33 | disposition home or self-care (01) ==
LOC: ER 08:40
DX: H92.01 Otalgia, right ear (principal); F17.210 Nicotine dependence, cigarettes, uncomplicated
CPT/HCPCS: 96372; 99283

== ENCOUNTER 2019-06-04 17:22 | Emergency (ER) | payer SELFPAY ==
--- OUTSIDE RECORDS SUMMARY | 2019-06-04 17:24 | XMS REPORT ---
:1980 [facility] [address] [place] [address] Care Team Providers Name Role Phone Unavailable Unavailable Unavailable Problems This patient has no known problems. Allergies, Adverse Reactions, Alerts This patient has no known allergies or adverse reactions. Medications This patient has no known medications.
--- NOTE | 2019-06-04 18:31 | ER ---
Nurse's Notes [facility] Name: Isabel Saucedo Age: 39 yrs Sex: Female : 1980 Arrival Date: 06/04/2019 Time: 17:24 Bed 18 Private MD: Diagnosis: Cutaneous abscess of groin-left labia majora Presentation: 06/04 17:32 Presenting complaint: Patient states: vaginal abscess started about a week ago after sv shaving and has been having drainage. c/o fever Tmax 102. Transition of care: patient was not received from another setting of care. Onset of symptoms was May 2019. Risk Assessment: Do you want to hurt yourself or someone else? Patient reports no desire to harm self or others. Care prior to arrival: None. 17:32 Method Of Arrival: Ambulatory sv 17:32 Acuity: SACHIN 3 sv 18:01 Initial Sepsis Screen: Does the patient meet any 2 criteria? No. Patient's initial em sepsis screen is negative. Does the patient have a suspected source of infection? Yes: Skin breakdown/wound. Triage Assessment: 17:32 General: Appears in no apparent distress. uncomfortable, well developed, Behavior is sv cooperative, appropriate for age, anxious. Pain: Complains of pain in pelvis. Neuro: Level of Consciousness is awake, alert, obeys commands, Gait is steady. Respiratory: Respiratory effort is even, unlabored, Respiratory pattern is regular, symmetrical. Historical: - Allergies: 17:33 PENICILLINS; sv - PMHx: 17:33 Aortic Stenosis; MRSA INFECTIONS; sv - PSHx: 17:33 Hysterectomy; bladder sling; sv - Immunization history:: Adult Immunizations up to date. - Social history:: Smoking status: Patient uses tobacco products. - Ebola Screening: : Patient negative for fever greater than or equal to 101.5 degrees Fahrenheit, and additional compatible Ebola Virus Disease symptoms Patient denies exposure to infectious person Patient denies travel to an Ebola-affected area in the 21 days before illness onset No symptoms or risks identified at this time. Screenin:01 Abuse screen: Denies threats or abuse. Nutritional screening: No deficits noted. em Tuberculosis screening: No symptoms or risk factors identified. Fall Risk None identified. Assessment: 18:00 General: Appears in no apparent distress. comfortable, Behavior is calm, cooperative. em Pain: Complains of pain in pelvis Pain currently is 7 out of 10 on a pain scale. Neuro: Level of Consciousness is awake, alert, obeys commands, Oriented to person, place, time, situation, Appropriate for age. Cardiovascular: Capillary refill < 3 seconds Patient's skin is warm and dry. Respiratory: Airway is patent Respiratory effort is even, unlabored, Respiratory pattern is regular, symmetrical. GI: Patient currently denies nausea, vomiting. : Reports pain pelvis Denies burning with urination. Derm: Skin is intact, is healthy with good turgor, Skin is pink, warm \T\ dry. Reports. Musculoskeletal: Capillary refill < 3 seconds, Range of motion: intact in all extremities. Vital Signs: 17:33 BP 122 / 75; Pulse 88; Resp 18; Temp 97.9; Pulse Ox 98% ; Weight 58.06 kg; Height 5 ft. sv 2 in. (157.48 cm); Pain 7/10; 17:33 Body Mass Index 23.41 (58.06 kg, 157.48 cm) sv ED Course: 17:24 Patient arrived in ED. rg4 17:33 Triage completed. sv 17:33 Arm band placed on. sv 17:48 Radha Dowling FNP-C is [facility]. kb 17:48 Hipolito Cobb MD is Attending Physician. kb 17:56 Kurt Wong LVN is Primary Nurse. em 18:01 Patient has correct armband on for positive identification. Placed in gown. Bed in low em position. 18:42 No provider procedures requiring assistance completed. Patient did not have IV access em during this emergency room visit. Administered Medications: 18:42 Drug: Bactrim (160 mg-800 mg (DS) 1 tablet Route: PO; em 18:46 Follow up: Response: Medication administered at discharge. em Outcome: 18:30 Discharge ordered by MD. kb 18:42 Discharged to home ambulatory. em 18:42 Condition: good 18:42 Discharge instructions given to patient, Instructed on discharge instructions, follow up and referral plans. medication usage, Demonstrated understanding of instructions, follow-up care, medications, Prescriptions given X 1. 18:47 Patient left the ED. em Signatures: Radha Dowling FNP-C FNP-Ckb Verde, Stephanie, RN RN sv Kurt Wong LVN LVN em Mena Sanchez rg4
--- NOTE | 2019-06-04 18:31 | EDPHYS ---
Physician Documentation [facility] Name: Isabel Saucedo Age: 39 yrs Sex: Female : 1980 Arrival Date: 06/04/2019 Time: 17:24 Bed 18 Private MD: ED Physician Hipolito Cobb HPI: 06/04 18:33 This 39 yrs old Female presents to ER via Ambulatory with complaints of kb Abscess. 18:33 The patient presents with an abscess of the left labia majora. Description: swollen. kb Onset: The symptoms/episode began/occurred 1 week(s) ago. Possible cause(s): unknown. Associated signs and symptoms: Pertinent positives: drainage. Modifying factors: the symptoms are alleviated by nothing, the symptoms are aggravated by nothing. Severity of symptoms: At their worst the symptoms were mild, in the emergency department the symptoms are unchanged. The patient has not experienced similar symptoms in the past. The patient has not recently seen a physician. Historical: - Allergies: 17:33 PENICILLINS; sv - PMHx: 17:33 Aortic Stenosis; MRSA INFECTIONS; sv - PSHx: 17:33 Hysterectomy; bladder sling; sv - Immunization history:: Adult Immunizations up to date. - Social history:: Smoking status: Patient uses tobacco products. - Ebola Screening: : Patient negative for fever greater than or equal to 101.5 degrees Fahrenheit, and additional compatible Ebola Virus Disease symptoms Patient denies exposure to infectious person Patient denies travel to an Ebola-affected area in the 21 days before illness onset No symptoms or risks identified at this time. ROS: 18:31 Constitutional: Negative for fever, chills, and weight loss, Cardiovascular: Negative kb for chest pain, palpitations, and edema, Respiratory: Negative for shortness of breath, cough, wheezing, and pleuritic chest pain, Abdomen/GI: Negative for abdominal pain, nausea, vomiting, diarrhea, and constipation, Back: Negative for injury and pain, MS/Extremity: Negative for injury and deformity, Neuro: Negative for headache, weakness, numbness, tingling, and seizure. 18:31 Skin: Positive for abscess, of the left labia majora. Exam: 18:31 Constitutional: This is a well developed, well nourished patient who is awake, alert, kb and in no acute distress. Head/Face: Normocephalic, atraumatic. Chest/axilla: Normal chest wall appearance and motion. Nontender with no deformity. No lesions are appreciated. Cardiovascular: Regular rate and rhythm with a normal S1 and S2. No gallops, murmurs, or rubs. Normal PMI, no JVD. No pulse deficits. Respiratory: Lungs have equal breath sounds bilaterally, clear to auscultation and percussion. No rales, rhonchi or wheezes noted. No increased work of breathing, no retractions or nasal flaring. Abdomen/GI: Soft, non-tender, with normal bowel sounds. No distension or tympany. No guarding or rebound. No evidence of tenderness throughout. MS/ Extremity: Pulses equal, no cyanosis. Neurovascular intact. Full, normal range of motion. Neuro: Awake and alert, GCS 15, oriented to person, place, time, and situation. Cranial nerves II-XII grossly intact. Motor strength 5/5 in all extremities. Sensory grossly intact. Cerebellar exam normal. Normal gait. 18:31 Skin: abscess, that is small, of the left labia majora, with induration, very small amount of induration, no fluctuance or redness. Nothing that needs to be drained at this time. Educated to follow up with PCP/PROCESS IMPROVEMENT CONSULTANT on Friday for reevaluation. Vital Signs: 17:33 BP 122 / 75; Pulse 88; Resp 18; Temp 97.9; Pulse Ox 98% ; Weight 58.06 kg; Height 5 ft. sv 2 in. (157.48 cm); Pain 7/10; 17:33 Body Mass Index 23.41 (58.06 kg, 157.48 cm) sv MDM: 17:49 Patient medically screened. kb 18:29 Data reviewed: vital signs, nurses notes. Data interpreted: Pulse oximetry: on room air kb is 98 %. Interpretation: normal. Counseling: I had a detailed discussion with the patient and/or guardian regarding: the historical points, exam findings, and any diagnostic results supporting the discharge/admit diagnosis, the need for outpatient follow up, a family practitioner, to return to the emergency department if symptoms worsen or persist or if there are any questions or concerns that arise at home. Administered Medications: 18:42 Drug: Bactrim (160 mg-800 mg (DS) 1 tablet Route: PO; em 18:46 Follow up: Response: Medication administered at discharge. em Disposition: 06/05 07:22 Co-signature as Attending Physician, Hipolito Cobb MD I agree with the assessment and kdr plan of care. Disposition: 06/04/19 18:30 Discharged to Home. Impression: Cutaneous abscess of groin - left labia majora. - Condition is Stable. - Discharge Instructions: Skin Abscess, [id number]. - Prescriptions for Bactrim DS 800- 160 mg Oral Tablet - take 1 tablet by ORAL route every 12 hours for 10 days; 20 tablet. - Medication Reconciliation Form, Thank You Letter, Antibiotic Education, Prescription Opioid Use form. - Follow up: Emergency Department; When: As needed; Reason: Worsening of condition. Follow up: Private Physician; When: 2 - 3 days; Reason: Recheck today's complaints, Continuance of care, Re-evaluation by your physician. Signatures: Radha Dowling, JENNIFER-C SUPERVISOR S[employer]ING [employer]PARTMENT-Lorna Anderson RN RN sv Rittger, Kevin, MD MD [facility] Kurt Wong, MACHINE STAPLER MACHINE STAPLER em Corrections: (The following items were deleted from the chart) 06/04 18:47 18:30 06/04/2019 18:30 Discharged to Home. Impression: Cutaneous abscess of groin - em left labia majora. Condition is Stable. Forms are Medication Reconciliation Form, Thank You Letter, Antibiotic Education, Prescription Opioid Use. Follow up: Emergency Department; When: As needed; Reason: Worsening of condition. Follow up: Private Physician; When: 2 - 3 days; Reason: Recheck today's complaints, Continuance of care, Re-evaluation by your physician. kb
[2019-06-04] MEDS ORDERED: SMZ./TMP. 800/160 MG TABLET ONE (18:39)
[2019-06-04 19:04] VITALS: BP 122/75; TEMP 97.9; O2SAT 98
== END 2019-06-04 18:47 | disposition home or self-care (01) ==
LOC: ER 17:22
DX: N76.4 Abscess of vulva (principal); Z72.0 Tobacco use; Z88.0 Allergy status to penicillin
CPT/HCPCS: 99283

== ENCOUNTER 2019-09-26 17:33 | Emergency (ER) | payer SELFPAY ==
--- OUTSIDE RECORDS SUMMARY | 2019-09-26 17:35 | XMS REPORT ---
:1980 [facility] Address [address] [place] [address] Care Team Providers Name Role Phone Unavailable Unavailable Unavailable Problems This patient has no known problems. Allergies, Adverse Reactions, Alerts This patient has no known allergies or adverse reactions. Medications This patient has no known medications.
[2019-09-26] MEDS ORDERED: ONDANSETRON 4 MG/2 ML VIAL ONE (18:13)
[2019-09-26] MEDS ORDERED: MORPHINE 4 MG/ML SYR ONE (18:13)
[2019-09-26] MEDS ORDERED: NA CHLORIDE 0.9% 1,000 ML ONE (18:13)
[2019-09-26 18:21] LABS: Absolute Lymphocytes (CBC) 3.1 K/uL (0.7-4.9); Basophils % 0.6 % (0-1.3); Hematocrit 41.3 % (36.0-45.0); Lymphocytes % 35.3 % (15.3-44.8); MPV 8.8 fL (7.6-11.3); RBC Red Blood Cell Count 4.51 M/uL (3.86-4.86)
[2019-09-26 18:43] LABS: ALT/SGPT 17 U/L (12-78); AST/SGOT 15 U/L (15-37); Albumin 3.5 g/dL (3.4-5.0); Alkaline Phosphatase 84 U/L (45-117); BUN Blood Urea Nitrogen 8 mg/dL (7-18); Bicarbonate 27 mmol/L (21-32); Bilirubin Direct < 0.1 mg/dL (0-0.2); Bilirubin Total 0.2 mg/dL (0.2-1.0); Glucose Level 77 mg/dL (74-106); Lipase 158 U/L (73-393); Potassium 3.9 mmol/L (3.5-5.1); Protein, Total 6.6 g/dL (6.4-8.2); Sodium Level 142 mmol/L (136-145)
[2019-09-26 19:02] LABS: Urine Blood NEGATIVE (NEG); Urine Glucose TRACE (NEG); Urine Protein NEGATIVE (NEG); Urine Specific Gravity 1.005 (1.005-1.030); Urine pH 6.5 (5.0-7.0)
--- NOTE | 2019-09-26 20:48 | RAD REPORT ---
EXAM DESCRIPTION: CT - Abdomen Pelvis W Contrast - 09/26/2019 6:53 pm CLINICAL HISTORY: lower abdominal pain, hysterectomy, bladder sling COMPARISON: CT ABD PELVIS W CONTRAST dated 04/06/2012 TECHNIQUE: Biphasic, helical CT imaging of the abdomen and pelvis was performed following 100 ml non -ionic IV contrast. No oral contrast administered. All CT scans are performed using dose optimization technique as appropriate and may include automated exposure control or mA/KV adjustment according to patient size. FINDINGS: No suspicious findings in the lung bases. The liver, spleen, and pancreas show no suspicious findings. Gallbladder and biliary tree are also wi thout suspicious finding. Symmetric renal function is seen with no hydronephrosis or suspicious renal mass. No obstructing calc tanna present. No pyelonephritis or acute parenchymal process. No bladder abnormalities. No adrenal abn ormalities. Uterus is absent. No ovarian abnormality seen. No gastric dilatation or wall thickening. No dilated large or small bowel loops. Moderate stool volum e seen in the right-side of the colon. Cecum is low lying at the floor the pelvis. No appendicitis fi ndings. No free air, free fluid or inflammatory stranding. No hernia, mass or bulky lymphadenopathy. No suspicious bony findings. Due to technical issues related to exam orders and image acquisition, images are only now available for interpretation. IMPRESSION: Contrast enhanced CT abdomen and pelvis showing no significant or suspicious finding. No acute process seen and no significant change is noted from the 2012 study.
--- NOTE | 2019-09-26 21:03 | ER ---
Nurse's Notes [facility] Name: Isabel Saucedo Age: 39 yrs Sex: Female : 1980 Arrival Date: 09/26/2019 Time: 17:35 Bed 26 Private MD: Diagnosis: Urinary tract infection, site not specified Presentation: 09/25 17:58 Chief complaint: Patient states: Lower abdominal and low back pain for 1 day. Slight ll1 nausea. Coronavirus screen: The patient has NOT traveled to a country currently being monitored by the CDC within the last 14 days. Ebola Screen: Patient denies travel to an Ebola-affected area in the 21 days before illness onset. Initial Sepsis Screen: Does the patient meet any 2 criteria? No. Patient's initial sepsis screen is negative. Does the patient have a suspected source of infection? No. Patient's initial sepsis screen is negative. Risk Assessment: Do you want to hurt yourself or someone else? Patient reports no desire to harm self or others. 17:58 Method Of Arrival: Ambulatory [facility] 17:58 Acuity: SACHIN 3 ll1 18:05 Onset of symptoms was September 26, 2019. 1 Triage Assessment: 18:03 General: Appears uncomfortable, Behavior is cooperative, crying. Pain: Complains of ll1 pain in pelvis Pain currently is 10 out of 10 on a pain scale. Quality of pain is described as aching, Pain began suddenly, Is continuous. Neuro: No deficits noted. Cardiovascular: No deficits noted. Respiratory: No deficits noted. GI: Abdomen is distended, Bowel sounds present X 4 quads. Abd is soft Abdomen is tender to palpation in suprapubic area, right lower quadrant and left lower quadrant Reports lower abdominal pain, nausea. HEAD OF TALENT MANAGEMENT: 18:05 LMP N/A - Hysterectomy ll1 Historical: - Allergies: 21:29 PENICILLINS; ll1 - PMHx: 21:29 MRSA INFECTIONS; Aortic Stenosis; ll1 - PSHx: 21:29 Hysterectomy; bladder sling; ll1 - Immunization history:: Adult Immunizations up to date. - Social history:: Smoking status: Patient reports the use of cigarette tobacco products, smokes one pack cigarettes per day. Patient/guardian denies using alcohol, street drugs. Screenin:02 Abuse screen: Denies threats or abuse. Nutritional screening: No deficits noted. ll1 Tuberculosis screening: No symptoms or risk factors identified. Fall Risk IV access (20 points). Gait- Weak (10 pts.). Total Flores Fall Scale indicates Low Risk Score (25-44 pts). Side Rails Up X 2 Placed close to Nursing Station Family Present and informed to notify staff if they need to leave bedside As available Patient and Family Educated on Fall Prevention Program and strategies. Assessment: 18:05 General: Appears distressed, uncomfortable, Behavior is cooperative, crying, restless, ll1 See triage assessment for further details. . 19:05 Reassessment: No changes from previously documented assessment. Patient and/or family ll1 updated on plan of care and expected duration. Pain level reassessed. Patient is alert, oriented x 3, equal unlabored respirations, skin warm/dry/pink. 20:05 Reassessment: Patient and/or family updated on plan of care and expected duration. Pain ll1 level reassessed. Patient is alert, oriented x 3, equal unlabored respirations, skin warm/dry/pink. pain a lot better now. Patient states feeling better. 21:00 Reassessment: No changes from previously documented assessment. Patient and/or family ll1 updated on plan of care and expected duration. Pain level reassessed. Patient is alert, oriented x 3, equal unlabored respirations, skin warm/dry/pink. Vital Signs: 17:46 BP 138 / 102; Pulse 85; Resp 16; Temp 98.3(O); Pulse Ox 100% on R/A; lt1 17:58 Pain 10/10; ll1 19:52 BP 124 / 75; Pulse 76; Resp 16; Temp 98.1; Pulse Ox 99% ; Pain 3/10; ll1 21:08 BP 120 / 71; Pulse 75; Resp 16; Temp 98.0; Pulse Ox 100% ; Pain 2/10; ll1 ED Course: 17:35 Patient arrived in ED. rg4 17:43 Francisco Berman PA is PHCP. jmm 17:43 Savage Moreno MD is Attending Physician. shiram 17:46 Door closed. Lights dimmed. Warm blanket given. lt1 17:53 Stephanie Juarez, KERRY is Primary Nurse. ll1 17:59 Triage completed. ll1 18:02 Arm band placed on Patient placed in an exam room. ll1 18:05 Patient has correct armband on for positive identification. Bed in low position. Call ll1 light in reach. Side rails up X 1. Adult w/ patient. 18:12 Missed attempt(s): 20 gauge in right antecubital area. lt1 18:13 Initial lab(s) drawn, by me, sent to lab. Inserted Missed attempt(s): 20 gauge in left lt1 antecubital area. 18:15 Missed attempt(s): 22 gauge in left in right hand. Bleeding controlled, band aid ll1 applied, catheter tip intact. 18:53 CT Abd/Pelvis - IV Contrast Only In Process Unspecified. EDMS 19:53 No provider procedures requiring assistance completed. ll1 21:00 IV discontinued, intact, bleeding controlled, No redness/swelling at site. Pressure ll1 dressing applied. Administered Medications: 18:37 Drug: NS 0.9% 1000 ml Route: IV; Rate: 1 bolus; Site: right antecubital; ll1 20:55 Follow up: Response: No adverse reaction; IV Status: Completed infusion; IV Intake: ll1 600ml 18:38 Drug: morphine 4 mg Route: IVP; Site: right antecubital; ll1 19:52 Follow up: Response: No adverse reaction; Pain is decreased; RASS: Alert and Calm (0) ll1 18:38 Drug: Zofran (Ondansetron) 4 mg Route: IVP; Site: right antecubital; ll1 19:51 Follow up: Response: No adverse reaction; Nausea is decreased; RASS: Alert and Calm (0) ll1 Intake: 20:55 IV: 600ml; Total: 600ml. ll1 Outcome: 21:02 Discharge ordered by . lyla 21:08 Discharged to home ambulatory, with family. ll1 21:08 Condition: improved 21:08 Discharge instructions given to patient, Instructed on discharge instructions, follow up and referral plans. medication usage, Demonstrated understanding of instructions, follow-up care, medications, Prescriptions given X 2. 21:31 Patient left the ED. ll1 Signatures: Dispatcher [employer] EDMS Francisco Berman PA PA jmm Garcia, Rubi 4 Maxine Baugh lt1 Stephanie Juarez RN RN ll1 Corrections: (The following items were deleted from the chart) 21:30 18:01 Allergies: PENICILLINS; ll1 ll1 18:01 PMHx: MRSA INFECTIONS; ll1 ll1 18: PMHx: Aortic Stenosis; ll1 ll1 18: PSHx: Hysterectomy; ll1 ll1 18: PSHx: bladder sling; ll1 ll1
--- NOTE | 2019-09-26 21:03 | EDPHYS ---
Physician Documentation [facility] Name: Isabel Saucedo Age: 39 yrs Sex: Female : 1980 Arrival Date: 09/26/2019 Time: 17:35 Bed 26 Private MD: ED Physician Savage Moreno HPI: 09/25 17:49 This 39 yrs old Female presents to ER via Ambulatory with complaints of Low jmm Back Pain, Abdominal Pain. 17:49 The patient presents with pain that is acute, with no known mechanism of injury. The jmm symptoms are located in the low back. The pain radiates to the pelvis. Onset: The symptoms/episode began/occurred gradually, this morning. Modifying factors: The patient symptoms are alleviated by nothing, the patient symptoms are aggravated by. Associated signs and symptoms: Pertinent positives: dysuria. This is a 39 year old female that presents to the ED with complaints of dysuria along with pelvic and lower back pain beginning earlier this morning. Denies abdominal pain, fever, vomiting, denies vaginal discharge. . 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 - Social history:: Smoking status: Patient reports the use of cigarette tobacco products, smokes one pack cigarettes per day. Patient/guardian denies using alcohol, street drugs. ROS: 17:49 Constitutional: Negative for fever, chills, and weight loss, Cardiovascular: Negative jmm for chest pain, palpitations, and edema, Respiratory: Negative for shortness of breath, cough, wheezing, and pleuritic chest pain. 17:49 Back: Positive for pain at rest. 17:49 : Positive for urinary symptoms. 17:49 All other systems are negative. Exam: 17:49 Head/Face: atraumatic. Eyes: EOMI, no conjunctival erythema appreciated ENT: Moist jmm Mucus Membranes Neck: Trachea midline, Supple Chest/axilla: Normal chest wall appearance and motion. Cardiovascular: Regular rate and rhythm. No edema appreciated Respiratory: Normal respirations, no respiratory distress appreciated Abdomen/GI: Non distended, soft Back: Normal ROM Skin: General appearance color normal MS/ Extremity: Moves all extremities, no obvious deformities appreciated, no edema noted to the lower extremities Neuro: Awake and alert, normal gait Psych: Behavior is normal, Mood is normal, Patient is cooperative and pleasant 17:49 Constitutional: The patient appears alert, awake, uncomfortable. Vital Signs: 17:46 BP 138 / 102; Pulse 85; Resp 16; Temp 98.3(O); Pulse Ox 100% on R/A; lt1 17:58 Pain 10/10; ll1 19:52 BP 124 / 75; Pulse 76; Resp 16; Temp 98.1; Pulse Ox 99% ; Pain 3/10; ll1 21:08 BP 120 / 71; Pulse 75; Resp 16; Temp 98.0; Pulse Ox 100% ; Pain 2/10; ll1 MDM: 17:49 Patient medically screened. [facility] 21:00 Data reviewed: vital signs, nurses notes. Counseling: I had a detailed discussion with [facility] the patient and/or guardian regarding: the historical points, exam findings, and any diagnostic results supporting the discharge/admit diagnosis, lab results, radiology results, the need for outpatient follow up, to return to the emergency department if symptoms worsen or persist or if there are any questions or concerns that arise at home. ED course: Imaging studies are negative. Patient advised to follow up with claim clerk for further evaluation. Patient otherwise given strict return precautions. Patient understood and agrees with the plan of care. . 09/25 18:02 Order name: Basic Metabolic Panel; Complete Time: 18:56 [facility] 09/25 18:02 Order name: CBC with Diff; Complete Time: 18:40 [facility] 09/25 18:02 Order name: Creatinine for Radiology; Complete Time: 18:40 [facility] 09/25 18:02 Order name: Hepatic Function; Complete Time: 18:56 [facility] 09/25 18:02 Order name: Lipase; Complete Time: 18:56 [facility] 09/25 18:02 Order name: IV Saline Lock; Complete Time: 18:13 [facility] 09/25 18:02 Order name: Labs collected and sent; Complete Time: 18:13 [facility] 09/25 18:04 Order name: Urine Dipstick--Ancillary (enter results); Complete Time: 19:10 09/25 18:41 Order name: CT Abd/Pelvis - IV Contrast Only; Complete Time: 20:52 [facility] Administered Medications: 18:37 Drug: NS 0.9% 1000 ml Route: IV; Rate: 1 bolus; Site: right antecubital; ll1 20:55 Follow up: Response: No adverse reaction; IV Status: Completed infusion; IV Intake: ll1 600ml 18:38 Drug: morphine 4 mg Route: IVP; Site: right antecubital; ll1 19:52 Follow up: Response: No adverse reaction; Pain is decreased; RASS: Alert and Calm (0) ll1 18:38 Drug: Zofran (Ondansetron) 4 mg Route: IVP; Site: right antecubital; ll1 19:51 Follow up: Response: No adverse reaction; Nausea is decreased; RASS: Alert and Calm (0) ll1 Disposition: 09/26 10:39 Co-signature as Attending Physician, Savage Moreno MD I agree with the assessment and [facility] plan of care. Disposition: 09/26/19 21:02 Discharged to Home. Impression: Urinary tract infection, site not specified. - Condition is Stable. - Discharge Instructions: Urinary Tract Infection, Adult. - Prescriptions for Tylenol- Codeine #3 300-30 mg Oral Tablet - take 2 tablet by ORAL route every 6 hours As needed; 6 tablet. Bactrim DS 800- 160 mg Oral Tablet - take 1 tablet by ORAL route every 12 hours for 10 days; 20 tablet. - Medication Reconciliation Form, Thank You Letter, Antibiotic Education, Prescription Opioid Use form. - Follow up: Private Physician; When: 2 - 3 days; Reason: Recheck today's complaints, Continuance of care, Re-evaluation by your physician. Signatures: Dispatcher [employer] Savage Rudd MD MD cha Mickail, Joel, PA PA jmm Lewis, Lynsay, RN RN ll1 Corrections: (The following items were deleted from the chart) 09/25 18:08 18:02 TEST, SERUM+SC.LAB.BRZ ordered. EDAR EDMS 18:54 18:29 Stone Protocol+CT.RAD.BRZ ordered. EDAR EDMS 21:30 18:01 Allergies: PENICILLINS; ll1 ll1 21:30 18:01 PMHx: MRSA INFECTIONS; ll1 ll1 21:30 18:01 PMHx: Aortic Stenosis; ll1 ll1 21:30 18:01 PSHx: Hysterectomy; ll1 ll1 21:30 18:01 PSHx: bladder sling; ll1 ll1 21:31 21:02 09/26/2019 21:02 Discharged to Home. Impression: Urinary tract infection, site ll1 not specified. Condition is Stable. Forms are Medication Reconciliation Form, Thank You Letter, Antibiotic Education, Prescription Opioid Use. Follow up: Private Physician; When: 2 - 3 days; Reason: Recheck today's complaints, Continuance of care, Re-evaluation by your physician. lyla
[2019-09-26 22:05] VITALS: BP 120/71; TEMP 98; O2SAT 100
== END 2019-09-26 21:31 | disposition home or self-care (01) ==
LOC: ER 17:33
DX: N39.0 Urinary tract infection, site not specified (principal); F17.210 Nicotine dependence, cigarettes, uncomplicated; Z88.0 Allergy status to penicillin
CPT/HCPCS: 36415; 74177; 80048; 80076; 81003; 83690; 85025; 96361; 96374; 96375; 99284; J2405; J7030; Q9967

== ENCOUNTER 2019-11-13 11:31 | Emergency (ER) | payer SELFPAY ==
--- NOTE | 2019-11-13 11:53 | EDPHYS ---
Physician Documentation [facility] Name: Isabel Saucedo Age: 39 yrs Sex: Female : 1980 Arrival Date: 11/13/2019 Time: 11:33 Bed 19 Private MD: ED Physician Torsten Kim HPI: 11/12 11:48 This 39 yrs old Female presents to ER via Unassigned with complaints of UTI, rn Staph Infection. 11:48 The patient's rash thought to be caused by an unknown cause. The rash can be described rn as erythematous. Severity of symptoms: At their worst the symptoms were mild in the emergency department the symptoms are unchanged. The patient has experienced similar episodes in the past. Reports has staph infection and UTI, seen yesterday at [facility] ER, given keflex, not sure if keflex will treat her infection given has had multiple in past and sometimes resistant. No fever. No abscess. No drainage. 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 - Social history:: Smoking status: Patient reports the use of cigarette tobacco products, smokes one pack cigarettes per day. - Family history:: not pertinent. - Hospitalizations: : No recent hospitalization is reported. ROS: 11:48 Constitutional: Negative for fever, chills, and weight loss, Eyes: Negative for injury, rn pain, redness, and discharge, Neck: Negative for injury, pain, and swelling, Cardiovascular: Negative for chest pain, palpitations, and edema, Respiratory: Negative for shortness of breath, cough, wheezing, and pleuritic chest pain, Abdomen/GI: Negative for abdominal pain, nausea, vomiting, diarrhea, and constipation, MS/Extremity: Negative for injury and deformity, Skin: + redness and painful lesions on RLE and right breast Neuro: Negative for headache, weakness, numbness, tingling, and seizure. Exam: 11:48 Constitutional: This is a well developed, well nourished patient who is awake, alert, rn and in no acute distress. Head/Face: Normocephalic, atraumatic. ENT: MMM Cardiovascular: Regular rate and rhythm. No pulse deficits. Respiratory: Speaking full sentences without respiratory distress Skin: Warm, dry, 2 small areas of open wounds, no fluctuance, right breast medial to areola, and right lateral calf MS/ Extremity: Pulses equal, no cyanosis. Neurovascular intact. Full, normal range of motion. Equal circumference. Neuro: Awake and alert, GCS 15, oriented to person, place, time, and situation. Cranial nerves II-XII grossly intact. Motor strength 5/5 in all extremities. Sensory grossly intact. Cerebellar exam normal. Normal gait. Vital Signs: 11:49 BP 137 / 87; Pulse 99; Resp 17 S; Temp 98.7(O); Pulse Ox 100% on R/A; Weight 54.43 kg ca1 (M); Height 5 ft. 2 in. (157.48 cm) (R); Pain 5/10; 11:49 Body Mass Index 21.95 (54.43 kg, 157.48 cm) ca1 MDM: 11:38 Patient medically screened. rn 11:52 Differential diagnosis: cellulitis, wounds related to meth. Data reviewed: vital signs, rn nurses notes, old medical records, lab test result(s), and as a result, I will discharge patient. Counseling: I had a detailed discussion with the patient and/or guardian regarding: the historical points, exam findings, and any diagnostic results supporting the discharge/admit diagnosis, the need for outpatient follow up, to return to the emergency department if symptoms worsen or persist or if there are any questions or concerns that arise at home. Special discussion: I discussed with the patient/guardian in detail that at this point there is no indication for admission to the hospital. It is understood, however, that if the symptoms persist or worsen the patient needs to return immediately for re-evaluation. Administered Medications: No medications were administered Disposition: 11/13/19 11:53 Discharged to Home. Impression: Rash and other nonspecific skin eruption, Urinary tract infection, site not specified. - Condition is Stable. - Discharge Instructions: Rash, Urinary Tract Infection, Adult. - Prescriptions for Bactrim DS 800- 160 mg Oral Tablet - take 1 tablet by ORAL route every 12 hours for 10 days; 20 tablet. - Medication Reconciliation Form, Thank You Letter, Antibiotic Education, Prescription Opioid Use form. - Follow up: Private Physician; When: As needed; Reason: Recheck today's complaints, Re-evaluation by your physician. - Problem is new. - Symptoms have improved. Signatures: Torsten Kim MD MD rn Acob, KERRY Olivera RN ca1 Corrections: (The following items were deleted from the chart) 11:53 11:53 11/13/2019 11:53 Discharged to Home. Impression: Rash and other nonspecific skin rn eruption. Condition is Stable. Forms are Medication Reconciliation Form, Thank You Letter, Antibiotic Education, Prescription Opioid Use. Follow up: Private Physician; When: As needed; Reason: Recheck today's complaints, Re-evaluation by your physician. Problem is new. Symptoms have improved. rn 12:02 11:53 11/13/2019 11:53 Discharged to Home. Impression: Rash and other nonspecific skin ca1 eruption; Urinary tract infection, site not specified. Condition is Stable. Forms are Medication Reconciliation Form, Thank You Letter, Antibiotic Education, Prescription Opioid Use. Follow up: Private Physician; When: As needed; Reason: Recheck today's complaints, Re-evaluation by your physician. Problem is new. Symptoms have improved. rn
--- NOTE | 2019-11-13 12:03 | ER ---
Nurse's Notes [facility] Name: Isabel Saucedo Age: 39 yrs Sex: Female : 1980 Arrival Date: 11/13/2019 Time: 11:33 Bed 19 Private MD: Diagnosis: Rash and other nonspecific skin eruption;Urinary tract infection, site not specified Presentation: 11/12 11:49 Chief complaint: Patient states: "I was in [facility] yesterday and was diagnosed ca1 with UTI. I was prescribed Keflex. I also have a staph infection on my R leg, and my breast. I used to have a staph infection on my vaginal area too but it has since cleared and dried up. I am on rehab and I can't go back until I am treated and cleared. Now, I have headaches and a low grade fever. I was tested for Covid-19 2 days ago and my result is negative. Coronavirus screen: Proceed with normal triage. Patient denies a cough. Patient denies shortness of breath or difficulty breathing. Patient denies measured and/or subjective temperature greater than 100.4F prior to today's visit. Patient denies travel on a cruise ship or to a country the [facility] currently lists as an affected area. Patient denies contact with known and/or suspected case of COVID-19. Ebola Screen: Patient negative for fever greater than or equal to 101.5 degrees Fahrenheit, and additional compatible Ebola Virus Disease symptoms Patient denies exposure to infectious person. Patient denies travel to an Ebola-affected area in the 21 days before illness onset. No symptoms or risks identified at this time. Initial Sepsis Screen: Does the patient meet any 2 criteria? No. Patient's initial sepsis screen is negative. Does the patient have a suspected source of infection? No. Patient's initial sepsis screen is negative. Risk Assessment: Do you want to hurt yourself or someone else? Patient reports no desire to harm self or others. Onset of symptoms was November 13, 2019. 11:49 Method Of Arrival: Ambulatory ca1 11:49 Acuity: SACHIN 5 ca1 Triage Assessment: 11:55 General: Appears in no apparent distress. comfortable, Behavior is calm, cooperative, ca1 appropriate for age. Pain: Complains of pain in face and scalp Pain currently is 5 out of 10 on a pain scale. EENT: No signs and/or symptoms were reported regarding the EENT system. Neuro: Level of Consciousness is awake, alert, obeys commands, Oriented to person, place, time, situation. Derm: Skin is intact, is healthy with good turgor, Skin is pink, warm \\T\\ dry. Wound noted chest and right leg Wound is red, raised. Musculoskeletal: Circulation, motion, and sensation intact. Capillary refill < 3 seconds. 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 - Social history:: Smoking status: Patient reports the use of cigarette tobacco products, smokes one pack cigarettes per day. - Family history:: not pertinent. - Hospitalizations: : No recent hospitalization is reported. Screenin:56 Abuse screen: Denies threats or abuse. Denies injuries from another. Nutritional ca1 screening: No deficits noted. Tuberculosis screening: No symptoms or risk factors identified. Fall Risk None identified. Assessment: 11:56 Reassessment: SEE TRIAGE NOTES. ca1 Vital Signs: 11:49 BP 137 / 87; Pulse 99; Resp 17 S; Temp 98.7(O); Pulse Ox 100% on R/A; Weight 54.43 kg ca1 (M); Height 5 ft. 2 in. (157.48 cm) (R); Pain 5/10; 11:49 Body Mass Index 21.95 (54.43 kg, 157.48 cm) ca1 ED Course: 11:33 Patient arrived in ED. ag5 11:38 Torsten Kim MD is Attending Physician. rn 11:49 Joselin Borja, KERRY is Primary Nurse. ca1 11:53 Triage completed. ca1 11:55 Arm band placed on right wrist. ca1 11:56 Patient has correct armband on for positive identification. Pulse ox on. NIBP on. ca1 11:58 No provider procedures requiring assistance completed. Patient did not have IV access ca1 during this emergency room visit. Administered Medications: No medications were administered Outcome: 11:53 Discharge ordered by . rn 12:01 Discharged to home ambulatory. ca1 12:01 Condition: stable 12:01 Discharge instructions given to patient, Instructed on discharge instructions, follow up and referral plans. medication usage, Demonstrated understanding of instructions, follow-up care, medications, Prescriptions given X 1. 12:02 Patient left the ED. ca1 Signatures: Torsten Kim MD MD rn Acob, KERRY Olivera RN ca1 Tiago, Kim ag5 Corrections: (The following items were deleted from the chart) 11:58 11:49 Acuity: SACHIN 4 ca1 ca1
[2019-11-13 12:28] VITALS: BP 137/87; TEMP 98.7; O2SAT 100
== END 2019-11-13 12:02 | disposition home or self-care (01) ==
LOC: ER 11:31
DX: N39.0 Urinary tract infection, site not specified (principal); F17.210 Nicotine dependence, cigarettes, uncomplicated; Z88.0 Allergy status to penicillin
CPT/HCPCS: 99283

== ENCOUNTER 2019-12-14 21:18 | Emergency (ER) | payer SELFPAY ==
--- OUTSIDE RECORDS SUMMARY | 2019-12-14 21:20 | XMS REPORT | Summary of Care ---
:1980 Author Organization [facility] Address [address] [place] [address] Care Team Providers Name Role Phone Scottie Tracy Primary Care Provider Encounter Details Date Type Department Care Team Description 11/11/2019 Orders Only [facility] Doctor Unassigned, No [address] [facility] [place] [address] [address] [place] [address] Allergies No Known Allergiesdocumented as of this encounter (statuses as of 11/11/2019) Medications Medication Sig Dispensed Refills Start Date End Date Status naproxen (NAPROSYN) 500 Take 1 Tab by 0 05/04/2010 Active mg tabletIndications: mouth 2 (two) Pelvic pain in female times daily with meals. documented as of this encounter (statuses as of 11/11/2019) Active Problems Problem Noted Date Well woman exam with routine gynecological exam 2018 Encounter for surveillance of contraceptives, unspecif ied contraceptive 10/21/2018 History of hysterectomy 10/21/2018 Screening examination for STD (sexually transmitted di sease) 10/21/2018 Breast pain 10/21/2018 History of abuse of recreational drug 10/21/2018 History of trauma 10/21/2018 Tobacco use disorder 10/21/2018 Uterovaginal prolapse 06/20/2010 Cystocele 06/20/2010 documented as of this encounter (statuses as of 11/11/2019) Resolved Problems Problem Noted Date Resolved Date Pelvic pain in female 06/20/2010 10/21/2018 Irregular menses 06/20/2010 10/21/2018 documented as of this encounter (statuses as of 11/11/2019) Immunizations Name Administration Dates Next Due Influenza Virus Vaccine - Whole 04/13/2018 PPD (TB) 04/13/2018 TDAP (ADACEL) VACCINE 04/13/2018 documented as of this encounter Social History Tobacco Use Types Packs/Day Years Used Date Current Every Day Smoker Cigarettes 1 19 Smokeless Tobacco: Never Used Alcohol Use Drinks/Week oz/Week Comments No Sex Assigned at Date Recorded Not on file Job Start Date Occupation Industry Not on file Not on file Not on file Travel History Travel Start Travel End No recent travel history available. COVID-19 Exposure Response Date Recorded In the last month, have you been in contact with No / Unsure 11/11/2019 10:06 AM CDT someone who was confirmed or suspected to have Coronavirus / COVID-19? documented as of this encounter Last Filed Vital Signs Not on filedocumented in this encounter Plan of Treatment Health Maintenance Due Date Last Done Comments PNEUMOCOCCAL 0-64 YEARS COMBINED SERIES 1986 (1 of 1 - PPSV23) INFLUENZA VACCINE (#1) 2019 04/13/2018 DTaP,Tdap,and Td Vaccines (2 - Td) 04/13/2028 04/13/2018 PAP SMEAR Discontinued 01/30/2010, 03/12/2006 documented as of this encounter Procedures Procedure Name Priority Date/Time Associated Diagnosis Comme nts CONSENT/REFUSAL FOR Routine 11/11/2019 12:01 AM CDT DIAGNOSIS AND TREATMENT documented in this encounter Results Not on filedocumented in this encounter Insurance Payer Benefit Plan Subscriber ID Effective Phone Address Typ e / Group Dates [employer] [place] [id number] xxxxxxxxx 2018-Prese [phone] [place] [id number] [place] [address] documented as of this encounter Advance Directives Name Relationship Healthcare Agent Relationship Co mmunication Minna Erickson Mother Primary healthcare agent
--- OUTSIDE RECORDS SUMMARY | 2019-12-14 21:21 | XMS REPORT | Continuity of Care Document ---
:1980 Author Organization [facility] t Address [address] [place] [address] Care Team Providers Name Role Phone Cliff Woods Attending Clinician Doctor Unassigned, Name Attending Clinician Unavailable Davey White MD, T Attending Clinician Problems This patient has no known problems. Allergies, Adverse Reactions, Alerts This patient has no known allergies or adverse reactions. Medications This patient has no known medications. Procedures This patient has no known procedures. Encounters Start End Encounter Admission Attending Care Care Encounter Source Date/Time Date/Time Type Type Clinicians Facility Department ID 2019-11-12 2019-11-12 Emergency Shonna, TRAUMA [id number] 15:14:22 17:17:00 [place] [facility] [id number] 2019-11-11 2019-11-11 Orders Doctor MAURI [id number] 00:00:00 00:00:00 Only UnassTAYA nassar [id number] [place] [facility] [id number] 2019-11-11 2019-11-11 Telephone Davey DOTSON [id number] 00:00:00 00:00:00 TAYA White [id number] [facility] [id number] Results This patient has no known results.
--- OUTSIDE RECORDS SUMMARY | 2019-12-14 21:21 | XMS REPORT | Summary of Care ---
:1980 Author Organization [facility] - [facility] Address [address] [place] [id number] Care Team Providers Name Role Phone Pcp, Does Not Have A Primary Care Provider Reason for Visit Reason Comments Other Sores Auth/Cert Status Reason Specialty Diagnoses / Referred By Referred To Procedures Contact Contact Emergency Medicine [facility] rgency Dept [address] [place] [phone] Fax: Encounter Details Date Type Department Care Team Description 11/12/2019 Emergency [facility] Chino Kilpatrick, Urinary fr equency (Primary Dx); Department [facility] Acute cystitis without hematuria; [address] [place] [address] [facility] Nonintractable headache, unspecified chr onicity pattern, unspecified headache type; [place], [place] Insect bite, unspecified sit e, [place] [phone] Allergies No Known Allergiesdocumented as of this encounter (statuses as of 11/12/2019) Medications Medication Sig Dispensed Refills Start Date End Date Status naproxen (NAPROSYN) Take 1 Tab by 0 05/04/2010 Active 500 mg mouth 2 (two) tabletIndications: times daily Pelvic pain in female with meals. cephALEXin (KEFLEX) Take 1 capsule 14 capsule 0 11/12/201902/2020 Active 500 mg by mouth 2 capsuleIndications: (two) times Acute cystitis without daily for 7 hematuria days. butalbital-acetaminoph Take 1 tablet 12 tablet 0 11/12/2019 Active en-caff 50-325-40 mg by mouth every tabletIndications: 6 (six) hours Nonintractable as needed for headache, unspecified Pain (scale chronicity pattern, 7-10). unspecified headache type documented as of this encounter (statuses as of 11/12/2019) Active Problems Problem Noted Date Well woman [...] as of this encounter (statuses as of 11/12/2019) Resolved Problems Problem Noted Date Resolved Date Pelvic pain in female 06/20/2010 10/21/2018 Irregular menses 06/20/2010 10/21/2018 documented as of this encounter (statuses as of 11/12/2019) Immunizations Name Administration Dates Next Due Influenza [...] been in contact with No / Unsure 11/12/2019 3:11 PM CDT someone who was confirmed or suspected to have Coronavirus / COVID-19? documented as of this encounter Last Filed Vital Signs Vital Sign Reading Time Taken Comments Blood Pressure 124/75 11/12/2019 5:12 PM CDT Pulse 85 11/12/2019 5:12 PM CDT Temperature 36.8 C (98.2 F) 11/12/2019 3:11 PM CDT Respiratory Rate 18 11/12/2019 5:12 PM CDT Oxygen Saturation 100% 11/12/2019 5:12 PM CDT Inhaled Oxygen Concentration - - Weight 54.4 kg (120 lb) 11/12/2019 3:13 PM CDT Height - - Body Mass Index 21.95 10/21/2018 8:40 AM CDT documented in this encounter Discharge Instructions Chino Lemon FNP - 11/12/2019DIAGNOSIS 1. UTI 2. Headache 3. Insect bite NO LIFE-THREATENING FINDINGS ON TODAY'S EXAM. RECOMMEND FOLLOW-UP WITH A PRIMARY CARE PROVIDER OR SPECIALIST IN 2-5 DAYS, ESPECIALLY IF NO IMPROVEMENT IN SYMPTOMS. MAY FOLLOW-UP WITH A PROVIDER OF YOUR CHOICE, SUCH : 1. A PHYSICIAN OF YOUR CHOICE 2. [address] [place] [address]; [phone] 3. [facility], [address] [place] [address]; [phone] OR, IF YOU WISH TO FOLLOW-UP WITHIN THE [facility], MAY TRY THESE OPTIONS (CLINIC APPOINTMENTS AVAILABLE ON [id number] BASIS): 1. SCHEDULE AN APPOINTMENT ONLINE AT WWW[facility] 2. OR CALL THE [facility] ACCESS CENTER AT OR 3. OR CALL YOUR [facility] PHYSICIAN'S OFFICE DIRECTLY IF YOU ARE ALREADY AN ESTABLISHED [facility] PATIENT. RETURN TO ER FOR WORSENING OF SYMPTOMS. AttachmentsThe following attachments cannot be sent through Care Everywhere. Bites and Stings, Insect (Tristanian)Urinary Tract Infections (UTIs), Understanding (Tristanian)Headaches, Self-Care for (Tristanian)documented in this encounter Plan of Treatment Name Type Priority Associated Diagnoses Date/Ti me URINE CULTURE LAB STAT Acute cystitis without rashaad turia 11/12/2019 4:56 PM CDT Name Type Priority Associated Diagnoses Order S chedule URINE CULTURE LAB Routine Acute cystitis without ONCE for 1 Occurrences hematuria starting 2019 until 11/12/2019 Health Maintenance Due Date Last Done Comments INFLUENZA VACCINE (Season 03/14/2020 04/13/2018 Ended) DTaP,Tdap,and Td Vaccines (2 04/13/2028 04/13/2018 - Td) PAP SMEAR Discontinued 01/30/2010, 03/12/2006 PNEUMOCOCCAL 0-64 YEARS Aged Out No longe r eligible based COMBINED SERIES on patient's age to complete this to [facility] documented as of this encounter Procedures Procedure Name Priority Date/Time Associated Diagnosis Comme nts URINALYSIS STAT 11/12/2019 4:17 PM Urinary frequency Res ults for this CDT procedure are i n the results section . documented in this encounter Results Urinalysis (11/12/2019 4:17 PM CDT) Pathologist Sig nature APPEARANCE Clear Clear [facility] COLOR Crystal (A) Yellow [facility] PH 5.0 4.8 - 8.0 [facility] SP GRAVITY 1.018 1.003 - 1.030 [facility] GLU U QUAL 50 mg/dL (A) Normal [facility] BLOOD Negative Negative [facility] KETONES Negative Negative [facility] PROTEIN Negative Negative [facility] UROBILIN 4.0 mg/dL (A) Normal [facility] BILIRUBIN Negative Negative [facility] NITRITE Positive Negative [facility] (A)Comment: Due to SERVICES color interference, the chemistry results may not be valid [place] ERICK Negative Negative [facility] RBC/HPF 1 0 - 3 HPF [facility] WBC/HPF 1 0 - 5 HPF [facility] BACTERIA Negative Negative [facility] MUCOUS Slight (A) Negative LPF [facility] SQ EPITH 1 <=2 HPF [facility] Specimen Urine - URINE, CLEAN CATCH Performing Organization Address City/State/Zipcode Phone Number [facility] CLIA: [id number], [address] [address] [address] [facility] documented in this encounter Visit Diagnoses Diagnosis Urinary frequency - Primary Acute cystitis without hematuria Acute cystitis Nonintractable headache, unspecified chr onicity pattern, unspecified headache type Insect bite, unspecified site, initial e ncounter documented in this encounter Administered Medications Medication Order MAR Action Action Date Dose Rate Site [id number] Given 11/12/2019 4:33 PM CDT 2 ta blets (ESGIC) 50-325-40 mg tablet 2 tablet 2 tablet, Oral, ONCE, 1 dose, Fri11/12/19 at 1715, Routine cephALEXin (KEFLEX) capsule 500 mg Given 11/12/2019 5:07 PM CDT 500 mg 500 mg, Oral, ONCE, 1 dose, Fri11/12/19 at 1800, AMOR, Reason for Anti-Infective: Documented Infection, Documented Infection Site: Urine, Duration of Therapy: Other (see Comments) documented in this encounter Advance Directives Name Relationship Healthcare Agent Relationship Co mmunication Minna Erickson Mother Primary healthcare agent ([place])
--- OUTSIDE RECORDS SUMMARY | 2019-12-14 21:21 | XMS REPORT | Summary of Care ---
:1980 Author Organization [facility] - [facility] Address [address] [place] [address] Care Team Providers Name Role Phone Scottie Tracy Primary Care Provider Reason for Visit Reason Comments Results Encounter Details Date Type Department Care Team Description 11/11/2019 Telephone ACCESS CENTER Burton Galvan, Results [address] [facility] [place] [phone] [facility] [address] [place], [place] [address] [phone] Allergies No Known Allergiesdocumented as of this [...] on patient's age to complete this to [facility] documented as of this encounter Results Not on filedocumented in this encounter Insurance Payer Benefit Plan Subscriber ID Effective Phone Address Typ e / Group Dates [employer] [place] [id number] xxxxxxxxx 2018-Prese [phone] Medicaid WOMEN nt [address] [place] [address] documented as of this encounter Advance Directives Name Relationship Healthcare Agent Relationship Co mmunication Minna Erickson Mother Primary healthcare agent
[2019-12-14 21:51] LABS: Absolute Lymphocytes (CBC) 3.6 K/uL (0.7-4.9); Basophils % 0.7 % (0-1.3); Hematocrit 37.8 % (36.0-45.0); MPV 8.7 fL (7.6-11.3); RBC Red Blood Cell Count 4.13 M/uL (3.86-4.86)
[2019-12-14 21:59] LABS: Protime INR 0.98
[2019-12-14 22:19] LABS: ALT/SGPT 22 U/L (12-78); AST/SGOT 16 U/L (15-37); Albumin 3.8 g/dL (3.4-5.0); Alkaline Phosphatase 72 U/L (45-117); BUN Blood Urea Nitrogen 10 mg/dL (7-18); Bicarbonate 31 mmol/L (21-32); Bilirubin Direct < 0.1 mg/dL (0-0.2); Bilirubin Total 0.1 mg/dL (0.2-1.0); Glucose Level 74 mg/dL (74-106); Magnesium 2.2 mg/dL (1.8-2.4); NT PRO-BNP 68 pg/mL (<125); Potassium 3.3 mmol/L (3.5-5.1); Protein, Total 6.9 g/dL (6.4-8.2); Sodium Level 140 mmol/L (136-145); Troponin (Emerg Dept Use Only) < 0.02 ng/mL (0.0-0.045)
[2019-12-14] MEDS ORDERED: POTASSIUM 25 MEQ EFFERV TAB ONE (23:07)
--- NOTE | 2019-12-14 23:21 | RAD REPORT ---
EXAM DESCRIPTION: Breanna Rosales (2 Views)12/14/2019 10:52 pm CLINICAL HISTORY: Chest pain COMPARISON: 2017 FINDINGS: The lungs appear clear of acute infiltrate. The heart is normal size IMPRESSION: No acute abnormalities displayed
[2019-12-14 23:41] LABS: Barbiturates NEGATIVE (NEGATIVE); Benzodiazepines NEGATIVE (NEGATIVE); Cocaine NEGATIVE (NEGATIVE); METHAMPHETAM NEGATIVE (NEGATIVE); Methadone NEGATIVE (NEGATIVE); Opiates NEGATIVE (NEGATIVE); Phencyclidine NEGATIVE (NEGATIVE); THC Cannibis NEGATIVE (NEGATIVE)
[2019-12-14 23:43] LABS: Urine Blood NEGATIVE (NEG); Urine Glucose NEGATIVE (NEG); Urine Protein NEGATIVE (NEG); Urine Specific Gravity 1.025 (1.005-1.030)
--- NOTE | 2019-12-15 00:01 | ER ---
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 States it lasted approximately 5 minutes. Now, her chest feels numb, and she feels anxious. Coronavirus screen: Proceed with normal triage. Patient denies a cough. Patient denies shortness of breath or difficulty breathing. Patient denies measured and/or subjective temperature greater than 100.4F prior to today's visit. Patient denies travel on a cruise ship or to a country the [facility] currently lists as an affected area. Patient denies contact with known and/or suspected case of COVID-19. Ebola Screen: Patient denies travel to an Ebola-affected area in the 21 days before illness onset. Initial Sepsis Screen: Does the patient meet any 2 criteria? No. Patient's initial sepsis screen is negative. Does the patient have a suspected source of infection? No. Patient's initial sepsis screen is negative. Risk Assessment: Do you want to hurt yourself or someone else? Patient reports no desire to harm self or others. Onset of symptoms was December 14, 2019. 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 - Social history:: Smoking status: Patient reports the use of cigarette tobacco products, smokes one pack cigarettes per day. Patient uses alcohol, but reports only rare drinking. Patient/guardian denies using street drugs. - Family history:: not pertinent. Screenin:47 Abuse screen: Denies threats or abuse. Nutritional screening: No deficits noted. jd3 Tuberculosis screening: No symptoms or risk factors identified. Fall Risk IV access (20 points). Ambulatory Aid- None/Bed Rest/Nurse Assist (0 pts). Gait- Normal/Bed Rest/Wheelchair (0 pts) Mental Status- Oriented to own ability (0 pts). Total Flores Fall Scale indicates No Risk (0-24 pts). Assessment: 21:45 General: Appears in no apparent distress. uncomfortable, Behavior is calm, cooperative, jd3 appropriate for age. Pain: Complains of pain in chest Pain radiates to left shoulder Quality of pain is described as pressure, sharp, shooting, Pain began suddenly. Neuro: Level of Consciousness is awake, alert, obeys commands, Oriented to person, place, time, situation. Cardiovascular: Reports chest pain, Heart tones S1 S2 present Capillary refill < 3 seconds Patient's skin is warm and dry. Rhythm is regular. Respiratory: Airway is patent Respiratory effort is even, unlabored, Respiratory pattern is regular, symmetrical, Breath sounds are clear bilaterally. Denies cough, shortness of breath. GI: No signs and/or symptoms were reported involving the gastrointestinal system. Patient currently denies constipation, diarrhea, nausea, vomiting. : No signs and/or symptoms were reported regarding the genitourinary system. EENT: No signs and/or symptoms were reported regarding the EENT system. Derm: Skin is intact, Skin is dry, Skin is normal, Skin temperature is warm. Musculoskeletal: Circulation, motion, and sensation intact. Range of motion: intact in all extremities. 22:49 Reassessment: Patient appears in no apparent distress at this time. No changes from jd3 previously documented assessment. Patient and/or family updated on plan of care and expected duration. Pain level reassessed. Patient is alert, oriented x 3, equal unlabored respirations, skin warm/dry/pink. 23:39 Reassessment: Patient appears in no apparent distress at this time. Patient and/or jd3 family updated on plan of care and expected duration. Pain level reassessed. Patient is alert, oriented x 3, equal unlabored respirations, skin warm/dry/pink. Patient denies pain at this time. Patient states feeling better. 06 00:05 Reassessment: Patient appears in no apparent distress at this time. Patient and/or jd3 family updated on plan of care and expected duration. Pain level reassessed. Patient is alert, oriented x 3, equal unlabored respirations, skin warm/dry/pink. Patient denies pain at this time. Patient states feeling better. Vital Signs: 12/13 21:25 BP 127 / 77; Pulse 76; Resp 18; Temp 98.1; Pulse Ox 100% ; Pain 0/10; ll1 22:49 Pulse 75; Resp 17 S; Pulse Ox 100% on R/A; jd3 12/14 00:06 BP 126 / 76; Pulse 76; Resp 16; Temp 98; Pulse Ox 100% on R/A; rv ED Course: 12/13 21:19 Patient arrived in ED. cl3 21:27 Triage completed. ll1 21:28 Arm band placed on Patient placed in an exam room, on a stretcher. ll1 21:40 Db Polo, KERRY is Primary Nurse. jd3 21:44 Savage Moreno MD is Attending Physician. marshall 21:47 Patient has correct armband on for positive identification. Placed in gown. Bed in low jd3 position. Call light in reach. Side rails up X 1. underwater welder on. Pulse ox on. NIBP on. 21:48 Inserted saline lock: 20 gauge in right antecubital area, using aseptic technique. jd3 Blood collected. Patient maintains SpO2 saturation greater than 95% on room air. 22:52 Chest Pa And Lat (2 Views) XRAY In Process Unspecified. [facility] 12/14 00:00 Inderjit Bolton MD is Referral Physician. marshall 00:06 No provider procedures requiring assistance completed. IV discontinued, intact, rv bleeding controlled, No redness/swelling at site. Pressure dressing applied. Administered Medications: 12/13 22:57 Not Given (Physician Discretion): Aspirin 162 mg PO once jd3 23:01 Drug: Potassium Effervescent Tablet 25 mEq Route: PO; jd3 23:38 Follow up: Response: No adverse reaction jd3 Outcome: 12/14 00:00 Discharge ordered by . marshall 00:06 Discharged to home ambulatory. rv 00:06 Condition: good 00:06 Discharge instructions given to patient, Instructed on discharge instructions, follow up and referral plans. medication usage, Demonstrated understanding of instructions, follow-up care, medications, Prescriptions given X 1. 00:06 Patient left the ED. rv Signatures: Dispatcher [employer] Savage Rudd MD MD cha Davies, Jonathon RN RN jd3 Hernando Smith, RN RN Darlene Conrad3 Stephanie Juarez RN RN ll1
--- NOTE | 2019-12-15 00:02 | EDPHYS ---
Physician Documentation [facility] Name: Isabel Saucedo Age: 39 yrs Sex: Female : 1980 Arrival Date: 12/14/2019 Time: 21:19 Bed 4 Private MD: ED Physician Savage Moreno HPI: 12/13 22:40 This 39 yrs old Female presents to ER via Ambulatory with complaints of Chest marshall Pain. 22:40 The patient or guardian reports chest pain that is located primarily in the anterior marshall chest wall, left. The pain does not radiate. Associated signs and symptoms: The patient has no apparent associated signs or symptoms. The chest pain is described as sharp. Modifying factors: The symptoms are alleviated by remaining still, the symptoms are aggravated by movement. Severity of pain: At its worst the pain was mild in the emergency department the pain has improved mildly. The patient has not experienced similar symptoms in the past. 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 - Social history:: Smoking status: Patient reports the use of cigarette tobacco products, smokes one pack cigarettes per day. Patient uses alcohol, but reports only rare drinking. Patient/guardian denies using street drugs. - Family history:: not pertinent. ROS: 22:42 Constitutional: Negative for fever, chills, and weight loss, Eyes: Negative for injury, marshall pain, redness, and discharge, ENT: Negative for injury, pain, and discharge, Neck: Negative for injury, pain, and swelling, Respiratory: Negative for shortness of breath, cough, wheezing, and pleuritic chest pain, Abdomen/GI: Negative for abdominal pain, nausea, vomiting, diarrhea, and constipation, Back: Negative for injury and pain, : Negative for injury, bleeding, discharge, and swelling, MS/Extremity: Negative for injury and deformity, Skin: Negative for injury, rash, and discoloration, Neuro: Negative for headache, weakness, numbness, tingling, and seizure, Psych: Negative for depression, anxiety, suicide ideation, homicidal ideation, and hallucinations, Allergy/Immunology: Negative for hives, rash, and allergies, Endocrine: Negative for neck swelling, polydipsia, polyuria, polyphagia, and marked weight changes, Hematologic/Lymphatic: Negative for swollen nodes, abnormal bleeding, and unusual bruising. 22:42 Cardiovascular: Positive for chest pain, of the left lateral posterior chest and left lateral anterior chest. 22:42 MS/extremity: Negative for acute changes. Exam: 22:42 Constitutional: This is a well developed, well nourished patient who is awake, alert, marshall and in no acute distress. Head/Face: Normocephalic, atraumatic. Eyes: Pupils equal round and reactive to light, extra-ocular motions intact. Lids and lashes normal. Conjunctiva and sclera are non-icteric and not injected. Cornea within normal limits. Periorbital areas with no swelling, redness, or edema. ENT: Nares patent. No nasal discharge, no septal abnormalities noted. Tympanic membranes are normal and external auditory canals are clear. Oropharynx with no redness, swelling, or masses, exudates, or evidence of obstruction, uvula midline. Mucous membranes moist. Neck: Trachea midline, no thyromegaly or masses palpated, and no cervical lymphadenopathy. Supple, full range of motion without nuchal rigidity, or vertebral point tenderness. No Meningismus. Chest/axilla: Normal chest wall appearance and motion. Nontender with no deformity. No lesions are appreciated. Cardiovascular: Regular rate and rhythm with a normal S1 and S2. No gallops, murmurs, or rubs. Normal PMI, no JVD. No pulse deficits. Respiratory: Lungs have equal breath sounds bilaterally, clear to auscultation and percussion. No rales, rhonchi or wheezes noted. No increased work of breathing, no retractions or nasal flaring. Abdomen/GI: Soft, non-tender, with normal bowel sounds. No distension or tympany. No guarding or rebound. No evidence of tenderness throughout. Back: No spinal tenderness. No costovertebral tenderness. Full range of motion. Skin: Warm, dry with normal turgor. Normal color with no rashes, no lesions, and no evidence of cellulitis. MS/ Extremity: Pulses equal, no cyanosis. Neurovascular intact. Full, normal range of motion. Neuro: Awake and alert, GCS 15, oriented to person, place, time, and situation. Cranial nerves II-XII grossly intact. Motor strength 5/5 in all extremities. Sensory grossly intact. Cerebellar exam normal. Normal gait. Psych: Awake, alert, with orientation to person, place and time. Behavior, mood, and affect are within normal limits. 22:42 Musculoskeletal/extremity: Extremities: all appear grossly normal, with no appreciated pain with palpation, ROM: no acute changes, intact in all extremities, Circulation is intact in all extremities. Sensation intact. Compartment Syndrome exam of affected extremity: is normal. DVT Exam: No signs of deep vein thrombosis. no pain, no swelling, no tenderness, negative Homans' sign noted on exam, no appreciated bluish discoloration, no erythema, no increased warmth. 22:59 ECG was reviewed by the Attending Physician. [facility] Vital Signs: 21:25 BP 127 / 77; Pulse 76; Resp 18; Temp 98.1; Pulse Ox 100% ; Pain 0/10; ll1 22:49 Pulse 75; Resp 17 S; Pulse Ox 100% on R/A; jd3 12/14 00:06 BP 126 / 76; Pulse 76; Resp 16; Temp 98; Pulse Ox 100% on R/A; rv MDM: 12/13 21:44 Patient medically screened. [facility] 22:43 Data reviewed: vital signs, nurses notes, lab test result(s), EKG, radiologic studies, [facility] plain films. 22:46 Differential diagnosis: acute myocardial infarction, acute pericarditis, coronary marshall artery disease chest wall pain, costochondritis, pericarditis, pneumothorax, pulmonary embolus, stable angina, unstable angina. HEART Score: History: Slightly Suspicious (0), ECG: Normal (0), Age: < or = 45 years (0), Risk Factors: 1 or 2 risk factors (1), [Active Smoker] [+ Family HX] Troponin: < or = 1 x Normal Limit (0), Total Score = 1. The patient's deep vein thrombosis risk score was calculated as follows: Total Score: 0. This patient was found to be at low risk for a deep vein thrombosis by using the Well's assessment criteria. The patient's pulmonary embolism risk score was calculated as follows: Total Score: 0-2 points. This patient was found to be at low risk for a pulmonary embolism by using the Well's assessment criteria. ANIYAH Risk Score: TOTAL SCORE = 0. 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 Test interpretation: by ED physician or midlevel provider: ECG, plain radiologic studies. 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 ED course: please stop smoking, follow up , return if worse.. 12/13 21:37 Order name: Basic Metabolic Panel; Complete Time: 22:29 [facility] 12/13 21:37 Order name: CBC with Diff; Complete Time: 22: [facility] 12/13 21:37 Order name: LFT's; Complete Time: 22:29 [facility] 12/13 21:37 Order name: Magnesium; Complete Time: 22:29 [facility] 12/13 21:37 Order name: NT PRO-BNP; Complete Time: 22:29 [facility] 12/13 21:37 Order name: PT-INR; Complete Time: 00:00 [facility] 12/13 21:37 Order name: Troponin (emerg Dept Use Only); Complete Time: 22:29 [facility] 12/13 22:39 Order name: Chest Pa And Lat (2 Views) XRAY; Complete Time: 00:00 [facility] 12/13 22:44 Order name: Troponin (emerg Dept Use Only): now; Complete Time: 00:00 [facility] 12/13 22:45 Order name: UDS; Complete Time: 00:00 [facility] 12/13 23:00 Order name: D-Dimer; Complete Time: 00:00 [facility] 12/13 23:40 Order name: Urine Dipstick--Ancillary (enter results); Complete Time: 00:00 [facility] 12/13 21:37 Order name: EKG; Complete Time: 21:39 [facility] 12/13 21:37 Order name: Cardiac monitoring; Complete Time: 21:39 [facility] 12/13 21:37 Order name: EKG - Nurse/Tech; Complete Time: 21:38 [facility] 12/13 21:37 Order name: IV Saline Lock; Complete Time: 21:38 [facility] 12/13 21:37 Order name: Labs collected and sent; Complete Time: 21:39 jd3 12/13 21:37 Order name: O2 Per Protocol; Complete Time: 21:38 jd3 12/13 21:37 Order name: O2 Sat Monitoring; Complete Time: 21:38 jd3 12/13 22:45 Order name: Urine Dipstick-Ancillary (obtain specimen); Complete Time: 23:39 marshall EC:59 Rate is 65 beats/min. Rhythm is regular. QRS [place] is Normal. SD interval is normal. QRS marshall interval is normal. QT interval is normal. No Q waves. T waves are Normal. No ST changes noted. Clinical impression: Normal ECG and No evidence of ischemia. Interpreted by me. Reviewed by me. Administered Medications: 22:57 Not Given (Physician Discretion): Aspirin 162 mg PO once jd3 23:01 Drug: Potassium Effervescent Tablet 25 mEq Route: PO; jd3 23:38 Follow up: Response: No adverse reaction jd3 Disposition: 12/15/19 00:00 Discharged to Home. Impression: Chest pain, unspecified, Tobacco abuse counseling, Tobacco use, Hypokalemia. - Condition is Stable. - Discharge Instructions: Nonspecific Chest Pain, Potassium Content of Foods, Steps to Quit Smoking, Smoking Hazards, Nonspecific Chest Pain, [id number], Steps to Quit Smoking, [id number], Aspirin and Your Heart, Hypokalemia. - Prescriptions for Toprol XL 25 mg Oral Tablet - take 1 tablet by ORAL route once daily; 20 tablet. - Medication Reconciliation Form, Thank You Letter, Antibiotic Education, Prescription Opioid Use form. - Follow up: Private Physician; When: 2 - 3 days; Reason: Recheck today's complaints, Continuance of care, Re-evaluation by your physician. Follow up: Inderjit Bolton; When: 2 - 3 days; Reason: Recheck today's complaints, Re-evaluation by your physician. - Problem is new. - Symptoms have improved. Signatures: Dispatcher [employer] EDMS Savage Moreno MD MD cha Pena, Laura, RN RN lp1 Db Polo RN RN jd3 Hernando Smith RN RN rv Stephanie Juarez RN RN ll1 Corrections: (The following items were deleted from the chart) 22:41 21:39 Chest Single View+RAD.RAD.BRZ ordered. [facility] EDAL 23:00 22:45 D-DIMER+COAG.LAB.BRZ ordered. [facility] 12/14 00:06 00:00 12/15/2019 00:00 Discharged to Home. Impression: Chest pain, unspecified; Tobacco rv abuse counseling; Tobacco use; Hypokalemia. Condition is Stable. Discharge Instructions: Nonspecific Chest Pain, Potassium Content of Foods, Steps to Quit Smoking, Smoking Hazards, Nonspecific Chest Pain, Vkos-vb-Cnoh, Steps to Quit Smoking, [id number], Aspirin and Your Heart, Hypokalemia. Prescriptions for Toprol XL 25 mg Oral Tablet - take 1 tablet by ORAL route once daily; 20 tablet. and Forms are Medication Reconciliation Form, Thank You Letter, Antibiotic Education, Prescription Opioid Use. Follow up: Private Physician; When: 2 - 3 days; Reason: Recheck today's complaints, Continuance of care, Re-evaluation by your physician. Follow up: Inderjit Bolton; When: 2 - 3 days; Reason: Recheck today's complaints, Re-evaluation by your physician. Problem is new. Symptoms have improved. marshall
[2019-12-15 00:48] VITALS: O2SAT 100
[2019-12-15 01:07] VITALS: BP 126/76; TEMP 98
--- NOTE | 2019-12-15 16:30 | EKG ---
Test Date: 2019-12-14 Test Time: 21:38:02 Clinical Project Assistant: JADYN MEASUREMENT RESULTS: Intervals: Rate: 65 HI: 152 QRSD: 90 QT: 394 QTc: 409 [place]: P: 72 HI: 152 QRS: 83 T: 61 INTERPRETIVE STATEMENTS: Normal sinus rhythm Normal ECG Compared to ECG 10/07/2016 15:37:26 Right-axis deviation no longer present T-wave abnormality no longer present Electronically Signed On 12-15-19 16:27:34 CDT by Inderjit Bolton
== END 2019-12-15 00:06 | disposition home or self-care (01) ==
LOC: ER 21:18
DX: E87.6 Hypokalemia (principal); Z72.0 Tobacco use; Z71.6 Tobacco abuse counseling; Z88.0 Allergy status to penicillin
CPT/HCPCS: 36415; 71046; 80048; 80076; 80307; 81003; 83735; 83880; 84484; 85025; 85379; 85610; 93005; 99285